=== PATIENT | male | born 1955 | race African-American/Black ===

== ENCOUNTER 2018-05-02 15:05 | Inpatient (IN) | payer MEDICARE ==
[2018-05-03 02:10] VITALS: BMI 25.2
[2018-05-03] MEDS ORDERED: Acetaminophen 325 MG TAB PO SCH (04:30)
[2018-05-03] MEDS ORDERED: Ondansetron PF 4 MG/2 ML Vial IVP PRN (07:57)
[2018-05-03] MEDS ORDERED: Ondansetron ODT 4 MG TAB PO PRN (07:57)
[2018-05-03] MEDS ORDERED: Nitroglycerin 0.4 MG TAB (25 Tab Bottle) PO PRN (07:57)
[2018-05-03] MEDS ORDERED: Calcium Carbonate 500 MG ChewTAB PO PRN (07:57)
[2018-05-03] MEDS ORDERED: hydrALAZINE 20 MG/ML VIAL SLOW IVP PRN (08:04)
[2018-05-03] MEDS ORDERED: Sodium Chloride 0.45% 1,000 ML IV SCH (08:15)
--- NOTE | 2018-05-03 08:24 | HP ---
PRIMARY CARE PHYSICIAN: The patient has seen Dr. Rosario in [place] in the past. He has not seen any primary care physician recently. CHIEF COMPLAINT: Left-sided weakness. HISTORY OF PRESENT ILLNESS: The patient is a 63-year-old male with hypertension, was brought in to [facility] with left-sided weakness along with facial droop that started 5 days ago. The symptoms started suddenly, which caused him to fall. He denies any chest pain, palpitations, lightheadedness, dizziness, or syncope. 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 He states that he takes aspirin daily; however, he is unable to recall any of his home medications. He denies any headaches, change in vision, seizure, weakness, or numbness of his right side. His speech was also slurry along with facial droop. He was unable to seek help since his was out of town for work. The returned yesterday and brought him to the emergency room. In the emergency room, his initial vital signs showed temperature 98.3, respirations of 16, pulse rate of 88, with a blood pressure 209/98 and 176/104. He received 75 mg Plavix in the emergency room. CT scan of the brain was negative. PAST MEDICAL HISTORY: 1. Hypertension. 2. Rheumatoid arthritis. 3. History of CVA. 4. Complete blindness in the right eye with 95% vision loss in the left eye. 5. Noncompliant with medication. PAST SURGICAL HISTORY: Reviewed with the patient and none. ALLERGIES: NO KNOWN DRUG ALLERGIES. CURRENT HOME MEDICATIONS: The patient is unable to recall any of his home medications. He states that he has not taken any blood pressure medications for more than 2 years. SOCIAL HISTORY: The patient smokes up to half pack a day. Currently, lives at home with his spouse. He has history of cannabis abuse in the past. No drug use. He makes his own decision with the help of his spouse. He is full code. FAMILY HISTORY: Negative for premature coronary artery disease. Heart disease and diabetes run in his family. REVIEW OF SYSTEM: All other review of systems was reviewed and found negative. PHYSICAL EXAMINATION: VITAL SIGNS: As discussed above. Last blood pressure is 138/83. GENERAL: A 63-year-old male, in no apparent distress. HEENT: Head atraumatic, normocephalic. Sclerae anicteric. Moist mucous membranes. No oral lesion. NECK: Supple. No JVD. No neck stiffness. LUNGS: Clear to auscultation bilaterally. HEART: S1 and S2 present. Regular rate and rhythm. ABDOMEN: Soft, nontender. Bowel sounds present. EXTREMITIES: No edema or calf tenderness. NEUROLOGIC: There is 5/5 strength in the right upper and right lower extremity. The strength was 2/5 in left upper and left lower extremity. Sensation to touch was diminished on the left side. Gjzrqb-[id number]-kdpt test was normal on the right. Cranial nerves could not be reliably checked due to vision issues. However, he was not able to move his eyeballs to his left past midline. Facial droop was noted. PSYCHIATRIC: The patient is alert, awake, and oriented x3. SKIN: Warm and dry. LYMPH NODES: No palpable lymph nodes in the neck. PERIPHERAL VASCULAR: Radial pulses palpable bilaterally. MUSCULOSKELETAL: No joint swelling. There is some tenderness over the left hip. LABORATORY FINDINGS: WBC 4.9, hemoglobin 12.7, hematocrit 39.1, and platelets 270. PT 14.3, INR 1.1. Chemistry showed sodium 137, potassium 4, chloride 105, bicarb 23, BUN 12, and creatinine 0.91. LFTs in normal range. CK was 426. CT scan of the brain, by my review, was negative for acute CVA. Telemetry monitoring, by my review, showed sinus rhythm. IMPRESSION: 1. Acute cerebrovascular accident involving the right middle cerebral artery distribution. 2. Hypertension with hypertensive urgency on ER arrival. 3. Medication noncompliance. 4. Complete blindness in the right eye/95% vision loss in the left eye. 5. History of rheumatoid arthritis. 6. Glaucoma. 7. Tobacco dependence. 8. Fall five days ago secondary to left-sided weakness. 9. Elevated CK. PLAN: 1. The patient will be monitored in the stroke unit. We will get stroke workup including MRI, echocardiogram, and carotid Doppler. Neurology will be consulted. We will continue Plavix. The patient states that he takes aspirin daily. Further recommendations per Neurology. His blood pressure is 138/83 at this time. He has not received any antihypertensives so far. We will repeat CK in a.m. Gentle IV hydration for elevated CK. 2. The patient will require 2 to 3 days for stabilization. Will probably need longterm versus rehab placement. Job ID: [id number]
[2018-05-03] MEDS ORDERED: Carvedilol 3.125 MG TAB PO SCH (09:00)
[2018-05-03] MEDS: Lisinopril 5 MG TAB PO SCH ×2 (09:39→22:12)
[2018-05-03] MEDS: Clopidogrel Bisulfate 75 MG TAB PO SCH (09:39)
[2018-05-03] MEDS: Senokot S 8.6-50 MG TAB PO SCH ×2 (09:40→22:12)
--- NOTE | 2018-05-03 11:58 | MRI ---
MRI BRAIN NONCONTRAST: Date: 05/03/18 HISTORY: CVA. Recent fall. FINDINGS: Within the posterior limb of the right internal capsule, near the right thalamus, is an oval focus of restricted diffusion measuring 1.0 cm greatest diameter. There is a corresponding defect on the ADC mapping images. Subtle abnormality at this location on the FLAIR and T2-weighted images. No other are as of acute intracranial infarct. Ventricles appear normal in size, shape, and position. No mass effe ct or shift of midline structures. IMPRESSION: Small focal acute infarct at the right basal ganglia and internal capsule. At this location, the lowe r trunk and left lower extremity may be affected. POS: [facility]
[2018-05-03] MEDS: Sodium Chloride 0.45% 1,000 ML IV SCH (12:30)
--- NOTE | 2018-05-03 13:07 | RAD ---
LEFT HIP 2 VIEWS: Date: 05/03/18 HISTORY: Fall. Left hip injury. FINDINGS: There is chronic appearing flattening and deformity of the femoral head and acetabulum with bulky ost eophytosis and subchondral sclerosis. No displaced fractures are apparent. IMPRESSION: Severe degenerative changes of the hip and collapse of the femoral head. No acute fractures are demon strated. POS: [facility]
[2018-05-03] MEDS ORDERED: Carvedilol 6.25 MG TAB PO SCH (17:00)
--- NOTE | 2018-05-03 21:39 | ULT ---
CAROTID ULTRASOUND WITH THOMAS SCALE AND DOPPLER DUPLEX COLOR FLOW IMAGING SPECTRAL ANALYSIS PERFORMED: CLINICAL INDICATION: Acute cerebrovascular accident. FINDINGS: There is mild scattered atherosclerotic calcification of the carotid arteries. PEAK SYSTOLIC VELOCITY (CM/S): Right CCA 136 Left CCA 128 Right ICA 93 Left ICA 91 There is antegrade flow within the visualized bilateral vertebral arteries. IMPRESSION: 1. No hemodynamically significant stenosis of the right internal carotid artery. 2. No hemodynamically significant stenosis of the left internal carotid artery. POS: MEL[facility]A
--- NOTE | 2018-05-04 02:58 | CON ---
DATE OF CONSULTATION: 05/03/2018 NEUROLOGY CONSULTATION REFERRING PHYSICIAN: Renzo Lawson MD. REASON FOR REFERRAL: CVA. HISTORY OF PRESENT ILLNESS: This is a 63-year-old male who about 5 days prior to admission noticed that he had weakness of the left side of the body. He states that it affected his left face, the left arm, and the left leg. He states that he fell a few times due to that and he fell on his left side on his hip that was x-rayed and was not broken. He states that his chronic medical problems include hypertension, glaucoma, and rheumatoid arthritis. He has complete blindness with no light perception in the right eye due to the glaucoma and he can only see shadows in the left eye due to glaucoma. He has had surgery for glaucoma in the left eye in the past. PAST MEDICAL HISTORY: Hypertension, rheumatoid arthritis, and glaucoma. SOCIAL HISTORY: Tobacco, he smokes about half a pack a day. Alcohol, denies. He lives with his . He does not drive due to his blindness. FAMILY HISTORY: Positive for heart disease and diabetes. REVIEW OF SYSTEMS: A 14-point review is done and is negative except for the blindness and the left-sided weakness. The patient states that the left-sided weakness did come on abruptly 5 days ago and has remained about the same as when it started. PHYSICAL EXAMINATION: VITAL SIGNS: Blood pressure 156/90, pulse is 83, temperature 97.7, respiratory rate is 16, and O2 saturation is 98% on room air. HEENT: Negative. There is corneal scarring in the right eye. The patient has no light perception in the right eye and sees only shadows in the left eye. The right pupil is nonvisualized due to the scarring. The left pupil is 5 mm and irregular and it is reactive to light. Other cranial nerves 2 through 12 show that he has no light perception in the right eye and sees only shadows in the left eye. 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 LUNGS: Clear. HEART: Regular. ABDOMEN: Not distended. EXTREMITIES: Some arthritis. SKIN: No bleeding. No rashes. EXTREMITIES: Joints, no swelling. NEUROLOGICAL: Cranial nerves 2 through 12 are as mentioned. Motor 5/5 strength in the right arm and leg. The left arm is 3/5 with diminished fine motor of the left hand and the left leg is 1/5. DTRs are 2+. The right toe is downgoing, the left toe is upgoing. Sensation is diminished to touch on the left side of the body compared to the right. According to the patient, it is about 20-25% of what the right side is. Gait, he is unable to walk both due to his poor vision and his left leg is very impaired at this time due to the stroke. DIAGNOSTIC DATA: Reports show that he had an MRI of the brain that showed as expected, a small focal acute infarct in the right basal ganglia and internal capsule area. It is about 1 cm in greatest diameter. Other labs have been ordered for tomorrow and they are pending. Note that an echocardiogram has been ordered as well as a carotid Doppler. MEDICATIONS: He is on Plavix 75 mg daily. IMPRESSION: Status post cerebrovascular accident in the right internal capsule basal ganglia area. This is most likely on the basis of chronic small vessel disease caused by long-standing hypertension and tobacco use. The patient has significant left-sided weakness and is at a fall risk. PLAN: I agree with giving him an antiplatelet therapy, Plavix, and one aspirin a day and agree with getting the echocardiogram and carotid Doppler. Test results discussed with him. Recommend speech therapy, physical and occupational therapy, and rehab. Fall precautions are in place. Discussed with the patient that he should stop smoking. Job ID: [id number]
[2018-05-04 06:00] LABS: #Basophils 0.1 thou/uL (0.0-0.2); #Lymphocytes 1.3 thou/uL (1.20-3.40); #Monocytes 0.5 thou/uL (0.11-0.59); #Neutrophils 2.1 thou/uL (1.40-6.50); %Basophils 1.3 % (0.0-1.0); %Eosinophils 1.1 % (0.0-10.0); %Lymphocytes 33.5 % (21.0-51.0); %Monocytes 11.4 % (0.0-10.0); %Neutrophils 52.6 % (42.0-75.0); Hemoglobin 11.6 g/dL (14.0-18.0); Mean Corpuscular HGB CONC 32.4 g/dL (32.0-36.0); Mean Corpuscular Hemoglobin 30.7 pg (27.0-31.0); Mean Corpuscular Volume 94.7 fL (78.0-98.0); Mean Platelet Volume 8.1 fL (7.4-10.4); Platelet Count 235 thou/uL (130-400); RBC Distribution Width 13.1 % (11.5-14.5); Red Blood Cell (RBC) Count 3.79 mill/uL (4.70-6.10)
[2018-05-04 06:22] LABS: ALT (SGPT) 13 U/L (8-55); AST (SGOT) 15 U/L (5-34); Albumin 3.7 g/dL (3.4-4.8); Alkaline Phosphatase 98 U/L (40-150); Anion Gap 11 mmol/L (10-20); BUN (Urea Nitrogen) 14 mg/dL (8.4-25.7); Bilirubin, Total 0.7 mg/dL (0.2-1.2); CK (CPK) 227 U/L (30-200); Calc. Creatinine Clearance 96 mL/min (70-130); Calcium 9.2 mg/dL (7.8-10.44); Carbon Dioxide 23 mmol/L (23-31); Cardiac Risk 7.6 (Less than 4.5); Chloride 105 mmol/L (98-107); Cholesterol 212 mg/dl (< 200 Desired); Estimated GFR-MDRD Greater than 90; Globulin 2.5 g/dL (2.4-3.5); Glucose 90 mg/dL (80-115); HDL Cholesterol 28 mg/dL (>60 Neg Risk); LDL Cholesterol, Calculated 161 mg/dL; Potassium 4.4 mmol/L (3.5-5.1); Protein, Total 6.2 g/dL (5.8-8.1); Sodium 135 mmol/L (136-145); Triglycerides 114 mg/dL (Less than 150)
[2018-05-04] MEDS: Sodium Chloride 0.45% 1,000 ML IV SCH (08:05)
[2018-05-04] MEDS: Aspirin 81 mg Enteric Coated Tablet PO SCH (08:07)
[2018-05-04] MEDS: Clopidogrel Bisulfate 75 MG TAB PO SCH (08:07)
[2018-05-04] MEDS: Lisinopril 5 MG TAB PO SCH ×2 (08:07→21:59)
[2018-05-04] MEDS: Carvedilol 3.125 MG TAB PO SCH ×2 (08:08→17:14)
[2018-05-04] MEDS: Senokot S 8.6-50 MG TAB PO SCH ×2 (08:08→21:59)
--- NOTE | 2018-05-04 11:30 | PDOC.PN ---
- Subjective Encounter Start Date: 05/04/18 Encounter Start Time: 10:00 Patient seen and examined for Acute CVA. No new focal deficits. No new complaints. No overnight events - Objective Resuscitation Status - Order Detail: 05/03/18 07:57 Resuscitation Status Routine Resuscitation Status: FULL: Full Resuscitation MAR Reviewed: Yes Vital Signs & Weight: Vital Signs (12 hours) Temp Pulse Resp BP BP Pulse Ox 05/04/18 08:07 60 130/73 05/04/18 07:35 98.5 F 60 16 130/73 93 L 05/04/18 04:00 98.5 F 64 16 108/57 L 97 05/04/18 03:54 96 05/04/18 00:00 98.3 F 75 16 137/81 96 Weight Weight 191 lb 1.6 oz I&O: 05/03/18 05/04/18 05/05/18 06:59 06:59 06:59 Output Total 550 Balance -550 Result Diagrams: 05/04/18 05:37 05/04/18 05:37 EKG Reviewed by me: Yes (Tele SR) Phys Exam - Physical Examination Constitutional: NAD Respiratory: no wheezing, no rhonchi Cardiovascular: RRR, no rub Gastrointestinal: soft, non-tender, positive bowel sounds Musculoskeletal: no edema Neurological: moves all 4 limbs no new neuro deficits. Dx/Plan (1) Acute CVA (cerebrovascular accident) Code(s): I63.9 - CEREBRAL INFARCTION, UNSPECIFIED Status: Acute (2) HTN (hypertension) Code(s): I10 - ESSENTIAL (PRIMARY) HYPERTENSION Status: Acute (3) Tobacco dependence Code(s): F17.200 - NICOTINE DEPENDENCE, UNSPECIFIED, UNCOMPLICATED Status: Chronic Comment: Counselled (4) Rheumatoid arthritis Code(s): M06.9 - RHEUMATOID ARTHRITIS, UNSPECIFIED Status: Chronic (5) Other issues per previous notes - Plan PT/OT, social work job titles, speech therapy, DVT proph w/lovenox, DVT proph w/SCDs * Cont ASA/Plavix * Reduce Coreg and Lisinopril dose * SNF vs Rehab * Cont other meds as below * Add low dose Statins Laboratory Tests 05/04/18 05:37 Creatine Kinase 227 H Triglycerides 114 Cholesterol 212 H LDL Cholesterol, Calc 161 Review of Systems - Review of Systems Respiratory: negative: Cough, Dry, Shortness of Breath, Hemoptysis, SOB with Excertion, Pleuritic Pain, Sputum, Wheezing Cardiovascular: negative: chest pain, palpitations, orthopnea, paroxysmal nocturnal dyspnea, edema, light headedness, other - Medications/Allergies Allergies/Adverse Reactions: Allergies Allergy/AdvReac Type Severity Reaction Status Date / Time No Known Drug Allergies Allergy Verified 05/03/18 02:27 Medications: Current Medications Acetaminophen (Tylenol) 650 mg PO Q4H PRN PRN Reason: Headache/Fever/Mild Pain (1-3) Aspirin (Ecotrin) 81 mg PO DAILY [facility] Last Admin: 05/04/18 08:07 Dose: 81 mg Atorvastatin Calcium (Lipitor) 10 mg PO HS [facility] Calcium Carbonate (Tums) 1,000 mg PO Q4H PRN PRN Reason: Heartburn or Indigestion Carvedilol (Coreg) 3.125 mg PO BID-[facility] Last Admin: 05/04/18 08:08 Dose: 3.125 mg Clopidogrel Bisulfate (Plavix) 75 mg PO QAM [facility] Last Admin: 05/04/18 08:07 Dose: 75 mg Hydralazine HCl (Apresoline) 10 mg SLOW IVP Q4H PRN PRN Reason: SBP Greater Than 180 Sodium Chloride (1/2 Normal Saline) 1,000 mls @ 50 mls/hr IV .Q20H [facility] Last Admin: 05/04/18 08:05 Dose: 1,000 mls Lisinopril (Zestril) 5 mg PO BID [facility] Last Admin: 05/04/18 08:07 Dose: 5 mg Nitroglycerin (Nitrostat) 0.4 mg PO Q5MIN PRN PRN Reason: Chest Pain Ondansetron HCl (Zofran Odt) 4 mg PO Q6H PRN PRN Reason: Nausea/Vomiting Ondansetron HCl (Zofran) 4 mg IVP Q6H PRN PRN Reason: Nausea/Vomiting Senna/Docusate Sodium (Senokot S) 1 tab PO BID [facility] Last Admin: 05/04/18 08:08 Dose: 1 tab Sodium Chloride (Flush - Normal Saline) 10 ml IVF PRN PRN PRN Reason: Saline Flush
[2018-05-04] MEDS: Atorvastatin Calcium 10 MG TAB PO SCH (21:59)
[2018-05-05] MEDS: Lisinopril 5 MG TAB PO SCH ×2 (08:03→21:24)
[2018-05-05] MEDS: Senokot S 8.6-50 MG TAB PO SCH ×2 (08:03→21:24)
[2018-05-05] MEDS: Aspirin 81 mg Enteric Coated Tablet PO SCH (08:04)
[2018-05-05] MEDS: Clopidogrel Bisulfate 75 MG TAB PO SCH (08:04)
[2018-05-05] MEDS: Carvedilol 3.125 MG TAB PO SCH ×2 (08:04→16:09)
[2018-05-05] MEDS: Acetaminophen 325 MG TAB PO PRN (08:11)
--- NOTE | 2018-05-05 12:25 | PQF ---
[employer] Crystal Reports Winform AltagraciaFABIOLAVANESSATAMEKAKRISTA CORDON MD [id number] CLINICAL DOCUMENTATION IMPROVEMENT CLARIFICATION FORM: ICD-10 Updated PLEASE DO AN ADDENDUM TO THE PROGRESS NOTE WITH ANY DOCUMENTATION UPDATES OR ADDITIONS AND CARRY THROUGH TO DC SUMMARY. THANK YOU. DATE: 05/05/2018 ATTN: DR. FOURNIER Please exercise your independent, professional judgment in responding to the clarification form. Clinical indicators are provided on the bottom of this form for your review Please check appropriate box(s): [ ] Left Hemiplegia Specify: [ ] Non dominant side [ ] Dominant side [ ] Other diagnosis [ ] Unable to determine CLINICAL INDICATORS - SIGNS / SYMPTOMS / LABS Presented for left sided weakness and facial droop x 4-5 days ER notes: Complete flaccidity of the left leg and weakness of left arm. H&P notes: 2/5 strength in left upper and lower extremities. Sensation to touch was diminished on left side. Facial droop was noted. RISK FACTORS CVA diagnosis Blindness due to previous stroke TREATMENT: Assisted with ambulation PT/OT Thank you, Nelly (This form is maintained as a part of the permanent medical record) 2015 [employer]. All Rights Reserved Nelly Delgado RN, CDIS [email or web address] [phone] MTDD
[2018-05-05] MEDS: Sodium Chloride 0.45% 1,000 ML IV SCH (16:08)
--- NOTE | 2018-05-05 16:09 | PDOC.PN ---
- Subjective Encounter Start Date: 05/05/18 Encounter Start Time: 10:30 Patient seen and examined for Acute CVA. No new complaints. No overnight events - Objective Resuscitation Status - Order Detail: 05/03/18 07:57 Resuscitation Status Routine Resuscitation Status: FULL: Full Resuscitation MAR Reviewed: Yes Vital Signs & Weight: Vital Signs (12 hours) Temp Pulse Resp BP BP Pulse Ox 05/05/18 11:59 98.3 F 68 16 144/88 H 98 05/05/18 09:45 98 05/05/18 08:03 63 150/90 H 05/05/18 07:47 97.9 F 66 16 150/90 H 98 Weight Weight 191 lb 1.6 oz I&O: 05/04/18 05/05/18 05/06/18 06:59 06:59 06:59 Intake Total 360 340 Output Total 550 Balance -550 360 340 Result Diagrams: 05/04/18 05:37 05/04/18 05:37 EKG Reviewed by me: Yes (Tele SR) Phys Exam - Physical Examination Constitutional: NAD Respiratory: no wheezing, no rhonchi Cardiovascular: RRR, no rub Gastrointestinal: soft, non-tender, positive bowel sounds Musculoskeletal: no edema Neurological: moves all 4 limbs Dx/Plan (1) Acute CVA (cerebrovascular accident) Code(s): I63.9 - CEREBRAL INFARCTION, UNSPECIFIED Status: Acute Comment: causing left hemiplegia (non dominant side) (2) HTN (hypertension) Code(s): I10 - ESSENTIAL (PRIMARY) HYPERTENSION Status: Acute (3) Tobacco dependence Code(s): F17.200 - NICOTINE DEPENDENCE, UNSPECIFIED, UNCOMPLICATED Status: Chronic Comment: Counselled (4) Rheumatoid arthritis Code(s): M06.9 - RHEUMATOID ARTHRITIS, UNSPECIFIED Status: Chronic (5) Other issues per previous notes - Plan cont current plan of care, PT/OT, social work coordinator, DVT proph w/lovenox, DVT proph w/SCDs Cont ASA -: Cont Coreg/Lisinopril/Statins -: Await Rehab eval -: Cont other meds as below Review of Systems - Review of Systems Respiratory: negative: Cough, Dry, Shortness of Breath, Hemoptysis, SOB with Excertion, Pleuritic Pain, Sputum, Wheezing Cardiovascular: negative: chest pain, palpitations, orthopnea, paroxysmal nocturnal dyspnea, edema, light headedness, other - Medications/Allergies Allergies/Adverse Reactions: Allergies Allergy/AdvReac Type Severity Reaction Status Date / Time No Known Drug Allergies Allergy Verified 05/03/18 02:27 Medications: Current Medications Acetaminophen (Tylenol) 650 mg PO Q4H PRN PRN Reason: Headache/Fever/Mild Pain (1-3) Last Admin: 05/05/18 08:11 Dose: 650 mg Aspirin (Ecotrin) 81 mg PO DAILY [facility] Last Admin: 05/05/18 08:04 Dose: 81 mg Atorvastatin Calcium (Lipitor) 10 mg PO HS [facility] Last Admin: 05/04/18 21:59 Dose: 10 mg Calcium Carbonate (Tums) 1,000 mg PO Q4H PRN PRN Reason: Heartburn or Indigestion Carvedilol (Coreg) 3.125 mg PO BID-[facility] Last Admin: 05/05/18 08:04 Dose: 3.125 mg [facility]opidogrel [facility] ([facility]ix) [facility] [place] Admin: 05/05/18 08:04 Dose: 75 mg Hydralazine HCl (Apresoline) 10 mg SLOW IVP Q4H PRN PRN Reason: SBP Greater Than 180 Sodium Chloride (1/2 Normal Saline) 1,000 mls @ 50 mls/hr IV .Q20H [facility] Last Admin: 05/04/18 08:05 Dose: 1,000 mls Lisinopril (Zestril) 5 mg PO BID [facility] Last Admin: 05/05/18 08:03 Dose: 5 mg Nitroglycerin (Nitrostat) 0.4 mg PO Q5MIN PRN PRN Reason: Chest Pain Ondansetron HCl (Zofran Odt) 4 mg PO Q6H PRN PRN Reason: Nausea/Vomiting Ondansetron HCl (Zofran) 4 mg IVP Q6H PRN PRN Reason: Nausea/Vomiting Senna/Docusate Sodium (Senokot S) 1 tab PO BID [facility] Last Admin: 05/05/18 08:03 Dose: 1 tab Sodium Chloride (Flush - Normal Saline) 10 ml IVF PRN PRN PRN Reason: Saline Flush
[2018-05-05] MEDS: Atorvastatin Calcium 10 MG TAB PO SCH (21:49)
[2018-05-06] MEDS: Aspirin 81 mg Enteric Coated Tablet PO SCH (10:12)
[2018-05-06] MEDS: Clopidogrel Bisulfate 75 MG TAB PO SCH (10:12)
[2018-05-06] MEDS: Carvedilol 3.125 MG TAB PO SCH ×2 (10:12→21:58)
[2018-05-06] MEDS: Lisinopril 5 MG TAB PO SCH ×2 (10:12→21:57)
[2018-05-06] MEDS: Senokot S 8.6-50 MG TAB PO SCH ×2 (10:13→21:56)
[2018-05-06] MEDS: Acetaminophen 325 MG TAB PO PRN ×2 (10:16→21:57)
--- NOTE | 2018-05-06 21:19 | PDOC.PN ---
- Subjective Encounter Start Date: 05/06/18 Encounter Start Time: 14:00 Patient seen and examined for acute CVA. No new focal deficits. No new complaints. No overnight events - Objective Resuscitation Status - Order Detail: 05/03/18 07:57 Resuscitation Status Routine Resuscitation Status: FULL: Full Resuscitation MAR Reviewed: Yes Vital Signs & Weight: Vital Signs (12 hours) Temp Pulse Resp BP Pulse Ox 05/06/18 15:12 98.2 F 66 20 145/77 H 98 05/06/18 11:19 98.1 F 69 20 143/73 H 97 05/06/18 10:12 63 Weight Weight 191 lb 1.6 oz I&O: 05/05/18 05/06/18 05/07/18 06:59 06:59 06:59 Intake Total 360 1040 1200 Output Total 1300 450 Balance 360 -260 750 Result Diagrams: 05/04/18 05:37 05/04/18 05:37 EKG Reviewed by me: Yes (Tele SR) Phys Exam - Physical Examination Constitutional: NAD Respiratory: no wheezing, no rhonchi Cardiovascular: RRR, no rub Gastrointestinal: soft, non-tender, positive bowel sounds Neurological: moves all 4 limbs no new focal findings Dx/Plan (1) Acute CVA (cerebrovascular accident) Code(s): I63.9 - CEREBRAL INFARCTION, UNSPECIFIED Status: Acute Comment: causing left hemiplegia (non dominant side) (2) HTN (hypertension) Code(s): I10 - ESSENTIAL (PRIMARY) HYPERTENSION Status: Acute (3) Tobacco dependence Code(s): F17.200 - NICOTINE DEPENDENCE, UNSPECIFIED, UNCOMPLICATED Status: Chronic Comment: Counselled (4) Rheumatoid arthritis Code(s): M06.9 - RHEUMATOID ARTHRITIS, UNSPECIFIED Status: Chronic (5) Other issues per previous notes - Plan cont current plan of care, PT/OT, DVT proph w/lovenox, DVT proph w/SCDs Cont ASA/Plavix/Statins with low dose Coreg and Lisinopril -: Stable for dc -: No bed available at Rehab today Review of Systems - Medications/Allergies Allergies/Adverse Reactions: Allergies Allergy/AdvReac Type Severity Reaction Status Date / Time No Known Drug Allergies Allergy Verified 05/03/18 02:27 Medications: Current Medications Acetaminophen (Tylenol) 650 mg PO Q4H PRN PRN Reason: Headache/Fever/Mild Pain (1-3) Last Admin: 05/06/18 10:16 Dose: 650 mg Aspirin (Ecotrin) 81 mg PO DAILY [facility] Last Admin: 05/06/18 10:12 Dose: 81 mg Atorvastatin Calcium (Lipitor) 10 mg PO HS [facility] Last Admin: 05/05/18 21:49 Dose: 10 mg Calcium Carbonate (Tums) 1,000 mg PO Q4H PRN PRN Reason: Heartburn or Indigestion Carvedilol (Coreg) 3.125 mg PO BID-[facility] Clopidogrel [facility] ([facility]avix) [facility] Last Admin: 05/06/18 10:12 Dose: 75 mg Hydralazine HCl (Apresoline) 10 mg SLOW IVP Q4H PRN PRN Reason: SBP Greater Than 180 Lisinopril (Zestril) 5 mg PO BID [facility] Last Admin: 05/06/18 10:12 Dose: 5 mg Nitroglycerin (Nitrostat) 0.4 mg PO Q5MIN PRN PRN Reason: Chest Pain Ondansetron HCl (Zofran Odt) 4 mg PO Q6H PRN PRN Reason: Nausea/Vomiting Ondansetron HCl (Zofran) 4 mg IVP Q6H PRN PRN Reason: Nausea/Vomiting Senna/Docusate Sodium (Senokot S) 1 tab PO BID [facility] Last Admin: 05/06/18 10:13 Dose: 1 tab Sodium Chloride (Flush - Normal Saline) 10 ml IVF PRN PRN PRN Reason: Saline Flush
[2018-05-06] MEDS: Atorvastatin Calcium 10 MG TAB PO SCH (21:56)
[2018-05-07] MEDS ORDERED: Carvedilol 6.25 MG TAB PO SCH (08:00)
[2018-05-07] MEDS: Senokot S 8.6-50 MG TAB PO SCH ×2 (09:18→20:47)
[2018-05-07] MEDS: Clopidogrel Bisulfate 75 MG TAB PO SCH (09:19)
[2018-05-07] MEDS: Lisinopril 5 MG TAB PO SCH ×2 (09:19→20:46)
[2018-05-07] MEDS: Aspirin 81 mg Enteric Coated Tablet PO SCH (09:19)
[2018-05-07] MEDS: Acetaminophen 325 MG TAB PO PRN (09:23)
[2018-05-07] MEDS: Carvedilol 6.25 MG TAB PO SCH (17:29)
[2018-05-07 18:32] LABS: #Basophils 0.1 thou/uL (0.0-0.2); #Eosinphils 0.1 thou/uL (0.0-0.7); #Lymphocytes 1.7 thou/uL (1.20-3.40); #Monocytes 0.3 thou/uL (0.11-0.59); %Eosinophils 1.4 % (0.0-10.0); %Lymphocytes 40.8 % (21.0-51.0); %Monocytes 8.2 % (0.0-10.0); %Neutrophils 47.7 % (42.0-75.0); Mean Corpuscular HGB CONC 32.7 g/dL (32.0-36.0); Mean Corpuscular Hemoglobin 31.1 pg (27.0-31.0); Mean Corpuscular Volume 95.1 fL (78.0-98.0); Mean Platelet Volume 7.5 fL (7.4-10.4); Platelet Count 213 thou/uL (130-400); Red Blood Cell (RBC) Count 3.85 mill/uL (4.70-6.10); White Blood Cell (WBC) Count 4.1 thou/uL (4.8-10.8)
[2018-05-07 18:55] LABS: Anion Gap 12 mmol/L (10-20); BUN (Urea Nitrogen) 11 mg/dL (8.4-25.7); Calc. Creatinine Clearance 109 mL/min (70-130); Calcium 9.4 mg/dL (7.8-10.44); Carbon Dioxide 24 mmol/L (23-31); Chloride 104 mmol/L (98-107); Estimated GFR-MDRD Greater than 90; Glucose 89 mg/dL (80-115); Magnesium 2.4 mg/dL (1.6-2.6); Potassium 4.1 mmol/L (3.5-5.1); Sodium 136 mmol/L (136-145)
[2018-05-07] MEDS: Atorvastatin Calcium 40 MG TAB PO SCH (20:46)
--- NOTE | 2018-05-07 22:16 | PDOC.PN ---
- Subjective Encounter Start Date: 05/07/18 Encounter Start Time: 12:00 Patient seen and examined for Acute CVA. No CP/SOB/Palpitations. No new complaints. No overnight events - Objective Resuscitation Status - Order Detail: 05/03/18 07:57 Resuscitation Status Routine Resuscitation Status: FULL: Full Resuscitation MAR Reviewed: Yes Vital Signs & Weight: Vital Signs (12 hours) Temp Pulse Pulse Pulse Resp BP BP 05/07/18 20:46 63 142/75 H 05/07/18 20:00 97.8 F 65 18 05/07/18 16:20 65 16 05/07/18 15:50 98 F 66 16 05/07/18 11:50 97.8 F 59 L 16 05/07/18 10:33 62 63 144/79 H BP BP Pulse Ox Pulse Ox 05/07/18 20:46 05/07/18 20:00 142/75 H 100 05/07/18 16:20 174/99 H 05/07/18 15:50 181/100 H 98 05/07/18 11:50 141/82 H 99 05/07/18 10:33 140/80 98 Weight Weight 191 lb 1.6 oz I&O: 05/06/18 05/07/18 05/08/18 06:59 06:59 06:59 Intake Total 1040 1700 1320 Output Total 1300 960 Balance -786 475 9304 Result Diagrams: 05/07/18 18:24 05/07/18 18:24 EKG Reviewed by me: Yes (Tele SR, NSVT earlier) Phys Exam - Physical Examination Constitutional: NAD Respiratory: no wheezing, no rhonchi Cardiovascular: RRR, no rub Gastrointestinal: soft, non-tender, positive bowel sounds Musculoskeletal: no edema Neurological: moves all 4 limbs (no new focal findings) Dx/Plan (1) Acute CVA (cerebrovascular accident) Code(s): I63.9 - CEREBRAL INFARCTION, UNSPECIFIED Status: Acute Comment: causing left hemiplegia (non dominant side) (2) NSVT (nonsustained ventricular tachycardia) Code(s): I47.2 - VENTRICULAR TACHYCARDIA Status: Acute (3) HTN (hypertension) Code(s): I10 - ESSENTIAL (PRIMARY) HYPERTENSION Status: Acute (4) Tobacco dependence Code(s): F17.200 - NICOTINE DEPENDENCE, UNSPECIFIED, UNCOMPLICATED Status: Chronic Comment: Counselled (5) Rheumatoid arthritis Code(s): M06.9 - RHEUMATOID ARTHRITIS, UNSPECIFIED Status: Chronic (6) Other issues per previous notes - Plan DVT proph w/lovenox, DVT proph w/SCDs Consult Cardiology -: Cont Coreg -: Cont ASA/Plavix -: Cont Statins -: Cont other meds as below Review of Systems - Review of Systems Respiratory: negative: Cough, Dry, Shortness of Breath, Hemoptysis, SOB with Excertion, Pleuritic Pain, Sputum, Wheezing Cardiovascular: negative: chest pain, palpitations, orthopnea, paroxysmal nocturnal dyspnea, edema, light headedness, other Gastrointestinal: negative: Nausea, Vomiting, Abdominal Pain, Diarrhea, Constipation, Melena, Hematochezia, Other - Medications/Allergies Allergies/Adverse Reactions: Allergies Allergy/AdvReac Type Severity Reaction Status Date / Time No Known Drug Allergies Allergy Verified 05/03/18 02:27 Medications: Current Medications Acetaminophen (Tylenol) 650 mg PO Q4H PRN PRN Reason: Headache/Fever/Mild Pain (1-3) Last Admin: 05/07/18 09:23 Dose: 650 mg Aspirin (Ecotrin) 81 mg PO DAILY [facility] Last Admin: 05/07/18 09:19 Dose: 81 mg Atorvastatin Calcium (Lipitor) 40 mg PO HS [facility] Last Admin: 05/07/18 20:46 Dose: 40 mg Calcium Carbonate (Tums) 1,000 mg PO Q4H PRN PRN Reason: Heartburn or Indigestion Carvedilol (Coreg) 6.25 mg PO BID[facility] Last Admin: 05/07/18 17:29 Dose: 6.25 mg [facility] ([facility]) [facility] [place] Admin: 05/07/18 09:19 Dose: 75 mg Hydralazine HCl (Apresoline) 10 mg SLOW IVP Q4H PRN PRN Reason: SBP Greater Than 180 Lisinopril (Zestril) 5 mg PO BID [facility] Last Admin: 05/07/18 20:46 Dose: 5 mg Nitroglycerin (Nitrostat) 0.4 mg PO Q5MIN PRN PRN Reason: Chest Pain Ondansetron HCl (Zofran Odt) 4 mg PO Q6H PRN PRN Reason: Nausea/Vomiting Ondansetron HCl (Zofran) 4 mg IVP Q6H PRN PRN Reason: Nausea/Vomiting Senna/Docusate Sodium (Senokot S) 2 tab PO BID [facility] Last Admin: 05/07/18 20:47 Dose: 2 tab Sodium Chloride (Flush - Normal Saline) 10 ml IVF PRN PRN PRN Reason: Saline Flush
[2018-05-08] MEDS: Lisinopril 5 MG TAB PO SCH ×2 (10:20→21:23)
[2018-05-08] MEDS: Carvedilol 6.25 MG TAB PO SCH ×2 (10:20→16:26)
[2018-05-08] MEDS: Senokot S 8.6-50 MG TAB PO SCH ×2 (11:22→21:23)
[2018-05-08] MEDS: Clopidogrel Bisulfate 75 MG TAB PO SCH (11:22)
[2018-05-08] MEDS: Aspirin 81 mg Enteric Coated Tablet PO SCH (11:22)
--- NOTE | 2018-05-08 12:45 | NM ---
MYOCARDIAL PERFUSION SCAN: 05/08/2018 PROVIDED CLINICAL HISTORY: Chest pain. RADIOPHARMACEUTICAL: Technetium 99m labeled sestamibi 31.1 millicuries IV stress. Technetium 99m labeled sestamibi 10.7 millicuries IV rest. FINDINGS: There is a normal, homogeneous distribution of radiotracer throughout the left ventricular myocardial at both stress and rest. Gated data demonstrate global hypokinesis with a calculated LVEF of 36%. TID is 1.11. IMPRESSION: 1. No reversibility to suggest ischemia. 2. Global hypokinesis with diminished left ventricular ejection fraction. POS: ROBERT
--- NOTE | 2018-05-08 14:50 | CON ---
DATE OF CONSULTATION: HISTORY OF PRESENT ILLNESS: The patient is a pleasant 63-year-old gentleman, who presented with a cerebrovascular accident and was noted to have a short run of nonsustained ventricular tach on telemetry monitoring. The patient has no known cardiac history. The patient presented with acute onset of left-sided weakness and loss of vision. The patient has a history of hypertension and tobacco abuse. The patient also has a history of noncompliance. The patient denies having any chest discomfort. He also denies any palpitations or dyspnea. The patient presented with acute cerebrovascular accident. PAST MEDICAL HISTORY: 1. Hypertension. 2. History of CVA. 3. Rheumatoid arthritis. 4. Glaucoma. PAST SURGICAL HISTORY: None. ALLERGIES: NONE. MEDICATIONS: None. SOCIAL HISTORY: Long history of tobacco abuse. FAMILY HISTORY: No strong family history of coronary artery disease. REVIEW OF SYSTEMS: Ten-point system otherwise unremarkable. PHYSICAL EXAMINATION: GENERAL: This is an elderly gentleman, in no acute distress. VITAL SIGNS: Blood pressure was 181/100. NECK: Showed no jugular venous distention. LUNGS: Clear to auscultation. HEART: Regular rate and rhythm. Normal S1 and S2. No murmurs. ABDOMEN: Nondistended. EXTREMITIES: Show no edema. VASCULAR: Radial pulses are 2+. LABORATORY DATA: Sodium 135, potassium 4.4, chloride 105, bicarb 23, BUN 14, creatinine is 0.94, and glucose is 90. Cholesterol was 212, his LDL was 161. His white blood cell count is 4.0, hemoglobin 11.6, hematocrit 35.9, and his platelets are 235. His EKG reveals him to have normal sinus rhythm with a normal ECG. Telemetry monitoring revealed a 5-beat run of nonsustained ventricular tachycardia. Echocardiogram revealed normal left ventricular ejection fraction of 50% to 55%. IMPRESSION: 1. Nonsustained ventricular tachycardia. 2. Cerebrovascular accident. 3. Hypertension. 4. Tobacco abuse. 5. Noncompliance. PLAN: This gentleman suffered a cerebrovascular accident. From a cardiac standpoint, he is on Plavix and aspirin. We would recommend increasing the dose of his Lipitor. We would restart low-dose beta-maria antonia therapy. We will proceed with stress test to make sure there is not evidence of acute ischemia with his recent cerebrovascular accident. We will try to treat medically unless there is severe ischemia. We would increase the dose of the patient's Lipitor. We will follow this patient with you. Please call my office. Job ID: [id number]
[2018-05-08] MEDS ORDERED: ADENOSINE 60 MG/20 ML VIAL ONE (15:38)
[2018-05-08] MEDS: Acetaminophen 325 MG TAB PO PRN (16:26)
[2018-05-08] MEDS ORDERED: Melatonin 3 MG TAB PO SCH ×2 (21:00)
[2018-05-08] MEDS: Atorvastatin Calcium 40 MG TAB PO SCH (21:27)
--- NOTE | 2018-05-08 22:52 | PDOC.PN ---
- Subjective Encounter Start Date: 05/08/18 Encounter Start Time: 14:00 Patient seen and examined for CVA and NSVT. No new complaints. No overnight events - Objective Resuscitation Status - Order Detail: 05/03/18 07:57 Resuscitation Status Routine Resuscitation Status: FULL: Full Resuscitation MAR Reviewed: Yes Vital Signs & Weight: Vital Signs (12 hours) Temp Pulse Resp BP BP Pulse Ox 05/08/18 21:23 81 148/96 H 05/08/18 20:00 97.9 F 81 19 148/96 H 99 05/08/18 16:26 142/75 H 05/08/18 15:36 97.9 F 56 L 16 138/81 99 05/08/18 11:58 97.8 F 71 16 179/102 H 99 Weight Weight 191 lb 1.6 oz I&O: 05/07/18 05/08/18 05/09/18 06:59 06:59 06:59 Intake Total 1700 1420 240 Output Total 960 250 Balance 740 1170 240 Result Diagrams: 05/07/18 18:24 05/07/18 18:24 EKG Reviewed by me: Yes (Tele SR) Phys Exam - Physical Examination Constitutional: NAD Respiratory: no wheezing, no rhonchi Cardiovascular: RRR, no rub Gastrointestinal: soft, non-tender, positive bowel sounds Musculoskeletal: no edema Neurological: moves all 4 limbs no new focal deficits. Dx/Plan (1) Acute CVA (cerebrovascular accident) Code(s): I63.9 - CEREBRAL INFARCTION, UNSPECIFIED Status: Acute Comment: causing left hemiplegia (non dominant side) (2) NSVT (nonsustained ventricular tachycardia) Code(s): I47.2 - VENTRICULAR TACHYCARDIA Status: Acute (3) HTN (hypertension) Code(s): I10 - ESSENTIAL (PRIMARY) HYPERTENSION Status: Acute (4) Tobacco dependence Code(s): F17.200 - NICOTINE DEPENDENCE, UNSPECIFIED, UNCOMPLICATED Status: Chronic Comment: Counselled (5) Rheumatoid arthritis Code(s): M06.9 - RHEUMATOID ARTHRITIS, UNSPECIFIED Status: Chronic (6) Other issues per previous notes - Plan cont current plan of care, PT/OT, speech therapy, DVT proph w/SCDs Coreg dose increased -: Stable for dc to Rehab -: Cont ASA/Plavix Review of Systems - Review of Systems Respiratory: negative: Cough, Dry, Shortness of Breath, Hemoptysis, SOB with Excertion, Pleuritic Pain, Sputum, Wheezing Cardiovascular: negative: chest pain, palpitations, orthopnea, paroxysmal nocturnal dyspnea, edema, light headedness, other - Medications/Allergies Allergies/Adverse Reactions: Allergies Allergy/AdvReac Type Severity Reaction Status Date / Time No Known Drug Allergies Allergy Verified 05/03/18 02:27 Medications: Current Medications Acetaminophen (Tylenol) 650 mg PO Q4H PRN PRN Reason: Headache/Fever/Mild Pain (1-3) Last Admin: 05/08/18 16:26 Dose: 650 mg Aspirin (Ecotrin) 81 mg PO DAILY [facility] Last Admin: 05/08/18 11:22 Dose: 81 mg Atorvastatin Calcium (Lipitor) 40 mg PO [facility] Last Admin: 05/08/18 21:27 Dose: 40 mg Calcium Carbonate (Tums) 1,000 mg PO Q4H PRN PRN Reason: Heartburn or Indigestion Carvedilol (Coreg) 12.5 mg PO BID-[facility] Last Admin: 05/08/18 16:26 Dose: 12.5 mg Clopidogrel Bis[facility]ate (Plavix) [facility] [place] Last Admin: 05/08/18 11:22 Dose: 75 mg Hydralazine HCl (Apresoline) 10 mg SLOW IVP Q4H PRN PRN Reason: SBP Greater Than 180 Lisinopril (Zestril) 5 mg PO BID [facility] Last Admin: 05/08/18 21:23 Dose: 5 mg Melatonin (Melatonin) 6 mg PO [facility] Last Admin: 05/08/18 21:23 Dose: 6 mg Nitroglycerin (Nitrostat) 0.4 mg PO Q5MIN PRN PRN Reason: Chest Pain Ondansetron HCl (Zofran Odt) 4 mg PO Q6H PRN PRN Reason: Nausea/Vomiting Ondansetron HCl (Zofran) 4 mg IVP Q6H PRN PRN Reason: Nausea/Vomiting Senna/Docusate Sodium (Senokot S) 2 tab PO BID [facility] Last Admin: 05/08/18 21:23 Dose: 2 tab Sodium Chloride (Flush - Normal Saline) 10 ml IVF PRN PRN PRN Reason: Saline Flush
[2018-05-09] MEDS: Clopidogrel Bisulfate 75 MG TAB PO SCH (09:28)
[2018-05-09] MEDS: Carvedilol 6.25 MG TAB PO SCH (09:28)
[2018-05-09] MEDS: Aspirin 81 mg Enteric Coated Tablet PO SCH (09:28)
[2018-05-09] MEDS: Lisinopril 5 MG TAB PO SCH (09:29)
[2018-05-09] MEDS: Senokot S 8.6-50 MG TAB PO SCH (09:30)
[2018-05-09 11:44] VITALS: BP 131/72; TEMP 98
--- NOTE | 2018-05-09 14:10 | DIS ---
DATE OF ADMISSION: 05/02/2018 DATE OF DISCHARGE: 05/09/2018 DISCHARGE DISPOSITION: Inpatient rehabilitation. The patient was seen and examined on the day of discharge. Denies any new complaints. No chest pain, shortness of breath, or palpitations. ALLERGIES: NO KNOWN DRUG ALLERGIES. DISCHARGE MEDICATIONS: 1. Aspirin 81 mg daily. 2. Plavix 75 mg daily. 3. Lisinopril 5 mg b.i.d. 4. Carvedilol 12.5 mg b.i.d. 5. Lipitor 40 mg at bedtime. INPATIENT CONSULTANTS: 1. Cardiology, Dr. Tutu Pace. 2. Neurology, Dr. Doherty. DIAGNOSTIC TESTS: 1. Echocardiogram showed ejection fraction of 50% to 55% with mild mitral regurgitation. 2. MRI of the brain showed acute infarction in the right basal ganglia and internal capsule. 3. Carotid Doppler was negative for hemodynamically significant stenosis. 4. X-ray of the hip was negative for acute fractures or dislocation. It showed severe degenerative changes. 5. Cardiolite stress test yesterday was negative for reversible ischemia. Ejection fraction on the stress test was 36% with TID 1.11. BRIEF HOSPITAL COURSE: The patient is a 63-year-old male with hypertension, presented to the emergency room with left-sided weakness. Please refer to the history and physical dated May 02, 2018, for further details. The patient was admitted to the hospital with a diagnosis of acute CVA. He underwent stroke workup as discussed above. Echocardiogram showed normal left ventricular ejection fraction. He also had short run of nonsustained ventricular tachycardia, for which he was evaluated by Cardiology. Beta maria antonia dose has been increased. Please note, the patient is currently not on any medications at home. He was evaluated by Cardiology and Neurology. Aspirin and Plavix have been started. He has been cleared by consultants for discharge. FINAL DIAGNOSES: 1. Acute CVA causing left-sided hemiplegia. 2. Nonsustained ventricular tachycardia. No new episode after increasing beta blockers. 3. Hypertension. 4. Tobacco dependence. The patient was counseled. 5. Rheumatoid arthritis. 6. 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 7. Medication noncompliance. 8. Hypertensive urgency on ER arrival. 9. History of rheumatoid arthritis. 10. Glaucoma. 11. History of fall 5 days prior to ER presentation. 12. Elevated CK, improved. Total time coordinating the discharge of this patient was 37 minutes. Job ID: [id number]
--- NOTE | 2018-05-11 13:09 | STRESS ---
Acquisition Time: 2018-05-08 10:05:58 Total Exercise Time: 00:04:00 Test Indications: CHEST PAIN Medications: Protocol: ADENOSINE Max HR: 085 BPM 54% of Pred: 155 BPM Max BP: 202/106 mmHG Max Work Load: 1.0 METS RESTING ECG: SINUS BRADYCARDIA AT 58 BPM SYMPTOMS: DYSPNEA NORMAL BP RESPONSE ECTOPY: NONE ECG STRESS: NO SIGNIFICANT CHANGES INTERPRETATION: AWAIT NUCLEAR IMAGES FOR DEFINITIVE DIAGNOSIS Confirmed by MIGUEL CACERES ([id number]), online content editor JENNIFER OLIVAREZ ([id number]) on 05/11/2018 1:08:40 PM Referred By: MD Vonnie ROLLINS Confirmed By:MIGUEL CACERES
== END 2018-05-09 13:32 | DRG 65 ==
LOC: ERS 15:05 → 2SE 17:35
PROVIDERS: ADMIT Family Medicine; ATTEND Family Medicine
DX: I63.89 Other cerebral infarction (principal); G81.94 Hemiplegia, unspecified affecting left nondominant side; I47.2 Ventricular tachycardia; R29.713 NIHSS score 13; I10 Essential (primary) hypertension; I16.0 Hypertensive urgency; M06.9 Rheumatoid arthritis, unspecified; R74.8 Abnormal levels of other serum enzymes; H40.9 Unspecified glaucoma; H54.3 Unqualified visual loss, both eyes; Z91.14 Patient's other noncompliance with medication regimen; F17.210 Nicotine dependence, cigarettes, uncomplicated
CPT/HCPCS: 36415; 70551; 78452; 80048; 80053; 80061; 82550; 83735; 85025; 93017; 93306; 93880; 94760; 99285; A9500; J0153

== ENCOUNTER 2020-04-17 10:35 | Outpatient (CLI) | payer MEDICARE ==
--- NOTE | 2020-04-17 12:56 | CT ---
EXAM: CT chest without contrast PROVIDED CLINICAL HISTORY: Personal history of nicotine dependence, low dose screening COMPARISON: None FINDINGS: The heart, pericardium and great vessels are suboptimally evaluated in the absence of IV contrast mat erial. Vascular calcification including coronary calcium is demonstrated. There is no evidence for thoracic lymph node enlargement with limitations due to lack of IV contrast. There is a noncalcified 4 mm average axial dimension nodule at the left lung apex. The lungs appear o therwise clear. The airway appears patent and of normal caliber. There is no pleural fluid or pneumothorax apparent. The visualized portions of the upper abdomen demonstrate no significant abnormality. The osseous structures demonstrate no concerning lytic or blastic lesions. IMPRESSION: 1. Lung RADS category 2-benign findings. Continue annual screening. 2. Vascular calcification including coronary calcium.
== END 2020-04-17 10:36 | disposition home or self-care (01) ==
LOC: BICCT 10:35
PROVIDERS: ATTEND Nurse Practitioner Adult Health
DX: Z12.2 Encounter for screening for malignant neoplasm of respiratory organs (principal); Z87.891 Personal history of nicotine dependence; I25.10 Atherosclerotic heart disease of native coronary artery without angina pectoris
CPT/HCPCS: G0297

== ENCOUNTER 2022-01-03 10:50 | Outpatient (CLI) | payer MEDICARE | END 2022-01-03 10:51 | disposition home or self-care (01) | LOC: PET 10:50 | PROVIDERS: ATTEND Surgery | DX: C50.221 Malignant neoplasm of upper-inner quadrant of right male breast (principal); C77.3 Secondary and unspecified malignant neoplasm of axilla and upper limb lymph nodes | CPT/HCPCS: 78815; A9552 ==

== ENCOUNTER 2022-01-23 11:02 | Outpatient (CLI) | payer MEDICARE | END 2022-01-23 11:03 | disposition home or self-care (01) | LOC: SCSMRI 11:02 | PROVIDERS: ATTEND Internal Medicine Hematology & Oncology | DX: C50.121 Malignant neoplasm of central portion of right male breast (principal); M16.11 Unilateral primary osteoarthritis, right hip; M16.12 Unilateral primary osteoarthritis, left hip; M87.852 Other osteonecrosis, left femur; M87.851 Other osteonecrosis, right femur; N40.0 Benign prostatic hyperplasia without lower urinary tract symptoms ==

== ENCOUNTER 2022-03-29 10:56 | Inpatient (IN) | payer MEDICARE ==
[2022-03-29 11:35] LABS: #Lymphocytes 0.9 thou/uL (1.20-3.40); #Monocytes 0.5 thou/uL (0.11-0.59); #Neutrophils 9.6 thou/uL (1.40-6.50); %Basophils 0.3 % (0.0-1.0); %Lymphocytes 7.9 % (21.0-51.0); %Monocytes 4.2 % (0.0-10.0); %Neutrophils 87.5 % (42.0-75.0); Hemoglobin 7.5 g/dL (14.0-18.0); Mean Corpuscular Hemoglobin 32.6 pg (27.0-31.0); Mean Corpuscular Volume 98.8 fl (78.0-98.0); Mean Platelet Volume 7.3 fL (7.4-10.4); Platelet Count 256 10x3/uL (130-400); RBC Distribution Width 13.9 % (11.5-14.5)
[2022-03-29] MEDS ORDERED: Cefepime 2 GM VIAL ONE (11:36)
[2022-03-29 11:44] LABS: Bilirubin Negative (Negative); Blood, Urine Negative (Negative); Clarity Clear (Clear); Glucose, Urine (Dipstick) Normal (Negative); Ketone, Urine Negative (Negative); Leukocyte Negative Leu/uL (Negative); Nitrite Negative (Negative); Protein, Urine (Dipstick) Negative (Neg-Trace); Specific Gravity, Urine 1.017 (1.002-1.036); Urobilinogen Normal mg/dL (Less than 2)
[2022-03-29 12:01] LABS: ALT (SGPT) 25 U/L (8-55); AST (SGOT) 16 U/L (5-34); Albumin 3.2 g/dL (3.4-4.8); Alkaline Phosphatase 171 U/L (40-110); Anion Gap 14 mmol/L (10-20); BUN (Urea Nitrogen) 103 mg/dL (8.4-25.7); Bilirubin, Total 0.4 mg/dL (0.2-1.2); Calc. Creatinine Clearance 0 mL/min (70-130); Calcium 8.6 mg/dL (7.8-10.44); Carbon Dioxide 17 mmol/L (23-31); Chloride 104 mmol/L (98-107); Estimated GFR 13; Glucose 145 mg/dL (80-115); Lipase 95 U/L (8-78); Potassium 5.5 mmol/L (3.5-5.1); Protein, Total 5.2 g/dL (5.8-8.1); Sodium 129 mmol/L (136-145)
[2022-03-29] MEDS ORDERED: NOREPINEPHRINE 8 MG/250 ML-D5W 250 ML ONE (12:34)
[2022-03-29] MEDS ORDERED: VANCOMYCIN 2 GRAM/500 ML BAG 2 GM in Premix Bag 1 BAG IVPB SCH ×2 (12:45→14:45)
[2022-03-29] MEDS ORDERED: Bisacodyl 10 MG SUPP PR PRN (12:47)
[2022-03-29] MEDS ORDERED: Guaifenesin DM 100-10/5 ML UDCUP PO PRN (12:47)
[2022-03-29] MEDS ORDERED: Vancomycin HCl 1 GM in Sodium Chloride 0.9% 250 ML 300 ML IVPB SCH (12:47)
[2022-03-29] MEDS ORDERED: Dextrose 5% in Water 1,000 ML IV SCH (12:47)
[2022-03-29] MEDS ORDERED: NOREPINEPHRINE 8 MG/250 ML-D5W 250 ML IVPB SCH (12:47)
[2022-03-29] MEDS ORDERED: Senokot S 8.6-50 MG TAB PO PRN (12:47)
[2022-03-29] MEDS ORDERED: Hydrocortisone Sod Succ/PF 100 mg/2 ml Vial IVP SCH (13:45)
[2022-03-29] MEDS ORDERED: Hydrocortisone Sod Succ/PF 100 mg/2 ml Vial ONE (13:59)
[2022-03-29 15:59] LABS: Anion Gap 15 mmol/L (10-20); BUN (Urea Nitrogen) 84 mg/dL (8.4-25.7); Calc. Creatinine Clearance 0 mL/min (70-130); Calcium 7.7 mg/dL (7.8-10.44); Carbon Dioxide 12 mmol/L (23-31); Chloride 110 mmol/L (98-107); Estimated GFR 18; Glucose 96 mg/dL (80-115); Potassium 5.6 mmol/L (3.5-5.1); Sodium 131 mmol/L (136-145)
[2022-03-29] MEDS ORDERED: Sodium Bicarbonate 150 MEQ in Dextrose 5% in Water 1,000 ML IV SCH (16:15)
[2022-03-29 17:25] LABS: #Lymphocytes 0.5 thou/uL (1.20-3.40); #Monocytes 0.6 thou/uL (0.11-0.59); #Neutrophils 15.5 thou/uL (1.40-6.50); %Basophils 0.2 % (0.0-1.0); %Lymphocytes 2.8 % (21.0-51.0); %Monocytes 3.5 % (0.0-10.0); %Neutrophils 93.5 % (42.0-75.0); Mean Corpuscular HGB CONC 32.6 g/dL (32.0-36.0); Mean Corpuscular Hemoglobin 32.4 pg (27.0-31.0); Mean Corpuscular Volume 99.3 fl (78.0-98.0); Mean Platelet Volume 7.6 fL (7.4-10.4); Platelet Count 231 10x3/uL (130-400); Red Blood Cell (RBC) Count 2.15 mill/uL (4.70-6.10); White Blood Cell (WBC) Count 16.6 10x3/uL (4.8-10.8)
[2022-03-29 17:33] VITALS: BMI 23.3
[2022-03-29] MEDS: Acetaminophen 325 MG TAB PO PRN (17:52)
[2022-03-29] MEDS: Hydrocortisone Sod Succ/PF 100 mg/2 ml Vial IVP SCH ×2 (17:53→23:00)
[2022-03-29] MEDS: Atorvastatin Calcium 40 MG TAB PO SCH (20:07)
[2022-03-29] MEDS: Pantoprazole 40 MG VIAL IVP SCH (20:07)
[2022-03-29] MEDS: Melatonin 3 MG TAB PO PRN (23:25)
[2022-03-30 04:18] LABS: #Lymphocytes 0.4 thou/uL (1.20-3.40); #Monocytes 0.4 thou/uL (0.11-0.59); #Neutrophils 16.3 thou/uL (1.40-6.50); %Eosinophils 0.1 % (0.0-10.0); %Lymphocytes 2.6 % (21.0-51.0); %Monocytes 2.2 % (0.0-10.0); %Neutrophils 95.1 % (42.0-75.0); Hemoglobin 7.8 g/dL (14.0-18.0); Mean Corpuscular HGB CONC 32.7 g/dL (32.0-36.0); Mean Corpuscular Hemoglobin 31.6 pg (27.0-31.0); Mean Corpuscular Volume 96.6 fl (78.0-98.0); Mean Platelet Volume 7.5 fL (7.4-10.4); Platelet Count 231 10x3/uL (130-400); RBC Distribution Width 14.6 % (11.5-14.5); Red Blood Cell (RBC) Count 2.47 mill/uL (4.70-6.10); White Blood Cell (WBC) Count 17.1 10x3/uL (4.8-10.8)
[2022-03-30 04:39] LABS: Phosphorus 3.6 mg/dL (2.3-4.7)
[2022-03-30 04:42] LABS: ALT (SGPT) 21 U/L (8-55); AST (SGOT) 16 U/L (5-34); Albumin 2.9 g/dL (3.4-4.8); Alkaline Phosphatase 172 U/L (40-110); Anion Gap 12 mmol/L (10-20); BUN (Urea Nitrogen) 54 mg/dL (8.4-25.7); BUN/Creatinine Ratio 27.98; Bilirubin, Total 0.6 mg/dL (0.2-1.2); Calc. Creatinine Clearance 42 mL/min (70-130); Calcium 8.2 mg/dL (7.8-10.44); Carbon Dioxide 20 mmol/L (23-31); Chloride 105 mmol/L (98-107); Estimated GFR 37; Globulin 2.3 g/dL (2.4-3.5); Glucose 142 mg/dL (80-115); Magnesium 2.3 mg/dL (1.6-2.6); Phosphorus 3.7 mg/dL (2.3-4.7); Protein, Total 5.2 g/dL (5.8-8.1); Sodium 132 mmol/L (136-145)
[2022-03-30] MEDS: Hydrocortisone Sod Succ/PF 100 mg/2 ml Vial IVP SCH ×2 (05:02→11:41)
[2022-03-30 05:16] LABS: Lactic Acid 0.7 mmol/L (0.5-2.2)
[2022-03-30] MEDS ORDERED: Sodium Bicarbonate 150 MEQ in Dextrose 5% in Water 1,000 ML IV SCH (08:45)
[2022-03-30] MEDS ORDERED: FLU VACC QS2022-23(65YR UP)/PF 240 MCG/0.7 ML SYRINGE IM ONE (09:00)
[2022-03-30] MEDS: Acetaminophen 325 MG TAB PO PRN ×2 (09:04→21:18)
[2022-03-30] MEDS: Clopidogrel Bisulfate 75 MG TAB PO SCH (09:05)
[2022-03-30] MEDS: Aspirin 81 mg Enteric Coated Tablet PO SCH (09:06)
[2022-03-30] MEDS: Enoxaparin Sodium 30 MG/0.3 ML SYRINGE SC SCH (09:17)
[2022-03-30] MEDS: Pantoprazole 40 MG VIAL IVP SCH ×2 (09:18→21:20)
[2022-03-30] MEDS: Cefepime 2 GM in Sodium Chloride 0.9% 100 ML IVPB SCH (11:41)
[2022-03-30 14:19] LABS: Vancomycin, Random 9.2 ug/mL (See Comment)
[2022-03-30] MEDS ORDERED: Vancomycin Dose by Levels Sliding Scale (Wt 71-99) FS SCH (15:00)
[2022-03-30] MEDS: VANCOMYCIN 1.25 GM/250 ML BAG 1.25 GM in Premix Bag 1 BAG IVPB SCH (17:35)
[2022-03-30] MEDS: Melatonin 3 MG TAB PO PRN (21:18)
[2022-03-30] MEDS: Atorvastatin Calcium 40 MG TAB PO SCH (21:20)
[2022-03-31 06:17] LABS: Lactic Acid 1.5 mmol/L (0.5-2.2)
[2022-03-31 06:33] LABS: ALT (SGPT) 27 U/L (8-55); AST (SGOT) 19 U/L (5-34); Albumin 2.6 g/dL (3.4-4.8); Alkaline Phosphatase 139 U/L (40-110); Anion Gap 9 mmol/L (10-20); BUN (Urea Nitrogen) 37 mg/dL (8.4-25.7); Bilirubin, Total 0.3 mg/dL (0.2-1.2); Calc. Creatinine Clearance 66 mL/min (70-130); Calcium 7.8 mg/dL (7.8-10.44); Carbon Dioxide 26 mmol/L (23-31); Chloride 101 mmol/L (98-107); Estimated GFR 63; Globulin 1.9 g/dL (2.4-3.5); Glucose 84 mg/dL (80-115); Magnesium 1.9 mg/dL (1.6-2.6); Phosphorus 1.8 mg/dL (2.3-4.7); Potassium 4.2 mmol/L (3.5-5.1); Protein, Total 4.5 g/dL (5.8-8.1); Sodium 132 mmol/L (136-145)
[2022-03-31] MEDS: Aspirin 81 mg Enteric Coated Tablet PO SCH (09:38)
[2022-03-31] MEDS: Enoxaparin Sodium 30 MG/0.3 ML SYRINGE SC SCH (09:38)
[2022-03-31] MEDS: Pantoprazole 40 MG VIAL IVP SCH ×2 (09:38→20:20)
[2022-03-31] MEDS: Clopidogrel Bisulfate 75 MG TAB PO SCH (09:38)
[2022-03-31 09:54] LABS: #Basophils 0.1 thou/uL (0.0-0.2); #Lymphocytes 1.2 thou/uL (1.20-3.40); #Monocytes 0.8 thou/uL (0.11-0.59); #Neutrophils 9.9 thou/uL (1.40-6.50); %Basophils 0.7 % (0.0-1.0); %Lymphocytes 10.3 % (21.0-51.0); %Monocytes 6.7 % (0.0-10.0); %Neutrophils 82.2 % (42.0-75.0); Hemoglobin 7.1 g/dL (14.0-18.0); Mean Corpuscular Hemoglobin 32.9 pg (27.0-31.0); Mean Corpuscular Volume 96.8 fl (78.0-98.0); Mean Platelet Volume 7.2 fL (7.4-10.4); Platelet Count 200 10x3/uL (130-400); RBC Distribution Width 14.5 % (11.5-14.5); Red Blood Cell (RBC) Count 2.15 mill/uL (4.70-6.10)
[2022-03-31 10:29] LABS: Free Thyroxine Index 1.7 (1.4-3.1); T4 6.5 ug/dL (4.87-11.72); Thyroid Stimulating Hormone 1.9631 uIU/mL (0.35-4.94)
[2022-03-31] MEDS ORDERED: Potassium Phosphate 30 MMOL in Sodium Chloride 0.9% 250 ML 250 ML IVPB SCH (11:00)
[2022-03-31] MEDS: Cefepime 2 GM in Sodium Chloride 0.9% 100 ML IVPB SCH (12:44)
[2022-03-31] MEDS: VANCOMYCIN 1.25 GM/250 ML BAG 1.25 GM in Premix Bag 1 BAG IVPB SCH (16:12)
[2022-03-31] MEDS: Ondansetron PF 4 MG/2 ML Vial IVP PRN (17:04)
[2022-03-31] MEDS: Atorvastatin Calcium 40 MG TAB PO SCH (20:20)
[2022-03-31 20:44] LABS: #Basophils 0.1 thou/uL (0.0-0.2); #Lymphocytes 1.2 thou/uL (1.20-3.40); #Monocytes 0.7 thou/uL (0.11-0.59); #Neutrophils 9.2 thou/uL (1.40-6.50); %Basophils 0.8 % (0.0-1.0); %Lymphocytes 10.4 % (21.0-51.0); %Monocytes 6.4 % (0.0-10.0); %Neutrophils 82.4 % (42.0-75.0); Hemoglobin 7.5 g/dL (14.0-18.0); Mean Corpuscular HGB CONC 33.4 g/dL (32.0-36.0); Mean Corpuscular Hemoglobin 32.2 pg (27.0-31.0); Mean Corpuscular Volume 96.3 fl (78.0-98.0); Mean Platelet Volume 6.8 fL (7.4-10.4); Platelet Count 184 10x3/uL (130-400); RBC Distribution Width 14.1 % (11.5-14.5); Red Blood Cell (RBC) Count 2.32 mill/uL (4.70-6.10); White Blood Cell (WBC) Count 11.2 10x3/uL (4.8-10.8)
[2022-04-01 06:27] LABS: Lactic Acid 0.6 mmol/L (0.5-2.2)
[2022-04-01 06:31] LABS: ALT (SGPT) 25 U/L (8-55); AST (SGOT) 21 U/L (5-34); Albumin 2.4 g/dL (3.4-4.8); Alkaline Phosphatase 132 U/L (40-110); Anion Gap 7 mmol/L (10-20); BUN (Urea Nitrogen) 18 mg/dL (8.4-25.7); Bilirubin, Total 0.5 mg/dL (0.2-1.2); Calc. Creatinine Clearance 86 mL/min (70-130); Calcium 7.8 mg/dL (7.8-10.44); Carbon Dioxide 29 mmol/L (23-31); Chloride 103 mmol/L (98-107); Estimated GFR 87; Globulin 1.9 g/dL (2.4-3.5); Glucose 79 mg/dL (80-115); Magnesium 1.7 mg/dL (1.6-2.6); Potassium 4.7 mmol/L (3.5-5.1); Protein, Total 4.3 g/dL (5.8-8.1); Sodium 134 mmol/L (136-145)
[2022-04-01] MEDS: Clopidogrel Bisulfate 75 MG TAB PO SCH (08:10)
[2022-04-01] MEDS: Aspirin 81 mg Enteric Coated Tablet PO SCH (08:10)
[2022-04-01] MEDS: Pantoprazole 40 MG VIAL IVP SCH ×2 (08:10→19:25)
[2022-04-01] MEDS: Cefepime 2 GM in Sodium Chloride 0.9% 100 ML IVPB SCH (11:07)
[2022-04-01 15:11] LABS: Vancomycin, Trough 8.7 ug/mL
[2022-04-01] MEDS: VANCOMYCIN 1.25 GM/250 ML BAG 1.25 GM in Premix Bag 1 BAG IVPB SCH (15:34)
[2022-04-01] MEDS: Acetaminophen 325 MG TAB PO PRN (15:41)
[2022-04-01] MEDS: Vancomycin HCl 750 MG in Sodium Chloride 0.9% 250 ML 250 ML IVPB SCH (15:41)
[2022-04-01] MEDS: Atorvastatin Calcium 40 MG TAB PO SCH (19:24)
[2022-04-01] MEDS: Ondansetron PF 4 MG/2 ML Vial IVP PRN (19:24)
[2022-04-01] MEDS: Lorazepam 0.5 MG TAB PO PRN (22:11)
[2022-04-02] MEDS: Vancomycin HCl 750 MG in Sodium Chloride 0.9% 250 ML 250 ML IVPB SCH ×2 (04:42→18:49)
[2022-04-02 05:22] LABS: #Lymphocytes 0.8 thou/uL (1.20-3.40); #Monocytes 0.6 thou/uL (0.11-0.59); %Basophils 0.3 % (0.0-1.0); %Eosinophils 0.4 % (0.0-10.0); %Lymphocytes 8.8 % (21.0-51.0); %Monocytes 6.2 % (0.0-10.0); %Neutrophils 84.4 % (42.0-75.0); Hemoglobin 7.1 g/dL (14.0-18.0); Mean Corpuscular HGB CONC 32.6 g/dL (32.0-36.0); Mean Corpuscular Hemoglobin 31.8 pg (27.0-31.0); Mean Corpuscular Volume 97.8 fl (78.0-98.0); Mean Platelet Volume 6.9 fL (7.4-10.4); Platelet Count 196 10x3/uL (130-400); RBC Distribution Width 14.2 % (11.5-14.5); Red Blood Cell (RBC) Count 2.22 mill/uL (4.70-6.10); White Blood Cell (WBC) Count 9.5 10x3/uL (4.8-10.8)
[2022-04-02 05:33] LABS: ALT (SGPT) 32 U/L (8-55); AST (SGOT) 23 U/L (5-34); Albumin 2.5 g/dL (3.4-4.8); Alkaline Phosphatase 143 U/L (40-110); Anion Gap 8 mmol/L (10-20); BUN (Urea Nitrogen) 13 mg/dL (8.4-25.7); Bilirubin, Total 0.4 mg/dL (0.2-1.2); Calc. Creatinine Clearance 89 mL/min (70-130); Calcium 7.8 mg/dL (7.8-10.44); Carbon Dioxide 27 mmol/L (23-31); Chloride 104 mmol/L (98-107); Estimated GFR 91; Globulin 1.9 g/dL (2.4-3.5); Glucose 85 mg/dL (80-115); Magnesium 1.6 mg/dL (1.6-2.6); Potassium 4.3 mmol/L (3.5-5.1); Protein, Total 4.4 g/dL (5.8-8.1); Sodium 135 mmol/L (136-145)
[2022-04-02 05:38] LABS: Lactic Acid 0.7 mmol/L (0.5-2.2)
[2022-04-02] MEDS: Pantoprazole 40 MG VIAL IVP SCH ×2 (09:26→21:26)
[2022-04-02] MEDS: Acetaminophen 325 MG TAB PO PRN (09:33)
[2022-04-02] MEDS: Cefepime 2 GM in Sodium Chloride 0.9% 100 ML IVPB SCH (12:18)
[2022-04-02] MEDS: Atorvastatin Calcium 40 MG TAB PO SCH (21:26)
[2022-04-02] MEDS: Docusate 100 MG CAP PO SCH (21:26)
[2022-04-02] MEDS: Lorazepam 0.5 MG TAB PO PRN (21:35)
[2022-04-02] MEDS: Hyoscyamine Sulfate SL 0.125 mg Tablet SL SCH (23:53)
[2022-04-03 04:33] LABS: Vancomycin, Trough 11.9 ug/mL
[2022-04-03] MEDS: Hyoscyamine Sulfate SL 0.125 mg Tablet SL SCH ×4 (05:20→23:11)
[2022-04-03] MEDS: Vancomycin HCl 750 MG in Sodium Chloride 0.9% 250 ML 250 ML IVPB SCH (05:20)
[2022-04-03 06:01] LABS: #Basophils 0.1 thou/uL (0.0-0.2); #Eosinphils 0.1 thou/uL (0.0-0.7); #Lymphocytes 0.9 thou/uL (1.20-3.40); #Monocytes 0.7 thou/uL (0.11-0.59); #Neutrophils 9.1 thou/uL (1.40-6.50); %Basophils 0.5 % (0.0-1.0); %Lymphocytes 7.9 % (21.0-51.0); %Monocytes 6.2 % (0.0-10.0); %Neutrophils 84.4 % (42.0-75.0); Hemoglobin 5.3 g/dL (14.0-18.0); Mean Corpuscular HGB CONC 32.8 g/dL (32.0-36.0); Mean Corpuscular Hemoglobin 32.1 pg (27.0-31.0); Mean Corpuscular Volume 97.9 fl (78.0-98.0); Mean Platelet Volume 6.6 fL (7.4-10.4); Platelet Count 251 10x3/uL (130-400); Red Blood Cell (RBC) Count 1.65 mill/uL (4.70-6.10); White Blood Cell (WBC) Count 10.8 10x3/uL (4.8-10.8)
[2022-04-03 06:13] LABS: Anion Gap 9 mmol/L (10-20); BUN (Urea Nitrogen) 8 mg/dL (8.4-25.7); Calc. Creatinine Clearance 97 mL/min (70-130); Calcium 7.9 mg/dL (7.8-10.44); Carbon Dioxide 25 mmol/L (23-31); Chloride 104 mmol/L (98-107); Estimated GFR 94; Glucose 92 mg/dL (80-115); Sodium 134 mmol/L (136-145)
[2022-04-03 06:24] LABS: INR-International Normal Ratio 1.1; PTT 32.3 sec (22.9-36.1); Prothrombin Time 14.6 sec (12.0-14.7)
[2022-04-03] MEDS: Docusate 100 MG CAP PO SCH ×2 (09:17→20:05)
[2022-04-03] MEDS: Cefepime 2 GM in Sodium Chloride 0.9% 100 ML IVPB SCH ×2 (09:17→20:05)
[2022-04-03] MEDS: Pantoprazole 40 MG VIAL IVP SCH ×2 (09:17→20:05)
[2022-04-03] MEDS: Acetaminophen 325 MG TAB PO PRN (10:09)
[2022-04-03] MEDS: Vancomycin 1 GM in Premix Bag 1 BAG IVPB SCH (16:10)
[2022-04-03] MEDS: HYDROcodone/Acetaminophen 7.5/325 mg Tablet PO PRN (16:35)
[2022-04-03] MEDS ORDERED: Oxybutynin ER 5 MG TAB PO SCH (17:00)
[2022-04-03 17:27] LABS: #Eosinphils 0.1 thou/uL (0.0-0.7); #Lymphocytes 0.6 thou/uL (1.20-3.40); #Monocytes 0.4 thou/uL (0.11-0.59); #Neutrophils 7.9 thou/uL (1.40-6.50); %Eosinophils 1.5 % (0.0-10.0); %Lymphocytes 6.4 % (21.0-51.0); %Neutrophils 88.1 % (42.0-75.0); Hemoglobin 8.7 g/dL (14.0-18.0); Mean Corpuscular HGB CONC 32.8 g/dL (32.0-36.0); Mean Corpuscular Hemoglobin 31.6 pg (27.0-31.0); Mean Corpuscular Volume 96.4 fl (78.0-98.0); Mean Platelet Volume 6.7 fL (7.4-10.4); Platelet Count 237 10x3/uL (130-400); RBC Distribution Width 14.5 % (11.5-14.5); Red Blood Cell (RBC) Count 2.75 mill/uL (4.70-6.10)
[2022-04-03] MEDS: Atorvastatin Calcium 40 MG TAB PO SCH (20:05)
[2022-04-03] MEDS: Lorazepam 0.5 MG TAB PO PRN (22:38)
[2022-04-04] MEDS: Vancomycin 1 GM in Premix Bag 1 BAG IVPB SCH (03:33)
[2022-04-04] MEDS: Hyoscyamine Sulfate SL 0.125 mg Tablet SL SCH ×3 (05:40→17:19)
[2022-04-04 05:56] LABS: #Eosinphils 0.2 thou/uL (0.0-0.7); #Lymphocytes 0.6 thou/uL (1.20-3.40); #Monocytes 0.3 thou/uL (0.11-0.59); #Neutrophils 7.5 thou/uL (1.40-6.50); %Basophils 0.1 % (0.0-1.0); %Lymphocytes 6.5 % (21.0-51.0); %Monocytes 3.9 % (0.0-10.0); %Neutrophils 87.6 % (42.0-75.0); Hemoglobin 9.1 g/dL (14.0-18.0); Mean Corpuscular HGB CONC 33.2 g/dL (32.0-36.0); Mean Corpuscular Hemoglobin 32.4 pg (27.0-31.0); Mean Corpuscular Volume 97.4 fl (78.0-98.0); Mean Platelet Volume 6.9 fL (7.4-10.4); Platelet Count 244 10x3/uL (130-400); RBC Distribution Width 14.3 % (11.5-14.5); White Blood Cell (WBC) Count 8.6 10x3/uL (4.8-10.8)
[2022-04-04 06:15] LABS: Anion Gap 7 mmol/L (10-20); BUN (Urea Nitrogen) 7 mg/dL (8.4-25.7); Calc. Creatinine Clearance 98 mL/min (70-130); Calcium 7.7 mg/dL (7.8-10.44); Carbon Dioxide 25 mmol/L (23-31); Chloride 104 mmol/L (98-107); Estimated GFR 95; Glucose 92 mg/dL (80-115); Sodium 132 mmol/L (136-145)
[2022-04-04] MEDS: HYDROcodone/Acetaminophen 7.5/325 mg Tablet PO PRN (08:37)
[2022-04-04] MEDS: Pantoprazole 40 MG VIAL IVP SCH ×2 (08:37→20:43)
[2022-04-04] MEDS: Cefepime 2 GM in Sodium Chloride 0.9% 100 ML IVPB SCH ×2 (08:37→20:44)
[2022-04-04] MEDS: Oxybutynin ER 5 MG TAB PO SCH (08:39)
[2022-04-04] MEDS: Docusate 100 MG CAP PO SCH ×2 (08:59→20:44)
[2022-04-04 15:29] LABS: Vancomycin, Trough 14.5 ug/mL
[2022-04-04] MEDS: VANCOMYCIN 1.25 GM/250 ML BAG 1.25 GM in Premix Bag 1 BAG IVPB SCH (15:54)
[2022-04-04] MEDS: Ondansetron PF 4 MG/2 ML Vial IVP PRN (18:27)
[2022-04-04] MEDS: Tamsulosin HCl 0.4 MG CAP PO SCH (20:43)
[2022-04-04] MEDS: Atorvastatin Calcium 40 MG TAB PO SCH (20:43)
[2022-04-04] MEDS: Lorazepam 0.5 MG TAB PO PRN (20:49)
[2022-04-05] MEDS: Hyoscyamine Sulfate SL 0.125 mg Tablet SL SCH ×4 (01:04→17:51)
[2022-04-05 03:18] LABS: #Eosinphils 0.2 thou/uL (0.0-0.7); #Lymphocytes 0.6 thou/uL (1.20-3.40); #Monocytes 0.4 thou/uL (0.11-0.59); #Neutrophils 9.4 thou/uL (1.40-6.50); %Basophils 0.3 % (0.0-1.0); %Eosinophils 2.3 % (0.0-10.0); %Lymphocytes 5.2 % (21.0-51.0); %Monocytes 4.1 % (0.0-10.0); %Neutrophils 88.1 % (42.0-75.0); Hemoglobin 9.8 g/dL (14.0-18.0); Mean Corpuscular HGB CONC 35.8 g/dL (32.0-36.0); Mean Corpuscular Hemoglobin 34.7 pg (27.0-31.0); Mean Corpuscular Volume 96.7 fl (78.0-98.0); Mean Platelet Volume 6.5 fL (7.4-10.4); Platelet Count 250 10x3/uL (130-400); RBC Distribution Width 14.3 % (11.5-14.5); Red Blood Cell (RBC) Count 2.83 mill/uL (4.70-6.10); White Blood Cell (WBC) Count 10.7 10x3/uL (4.8-10.8)
[2022-04-05 03:47] LABS: Vancomycin, Trough 15.4 ug/mL
[2022-04-05 03:53] LABS: Anion Gap 10 mmol/L (10-20); BUN (Urea Nitrogen) 11 mg/dL (8.4-25.7); Calc. Creatinine Clearance 92 mL/min (70-130); Calcium 7.7 mg/dL (7.8-10.44); Carbon Dioxide 22 mmol/L (23-31); Chloride 105 mmol/L (98-107); Estimated GFR 93; Glucose 90 mg/dL (80-115); Potassium 4.2 mmol/L (3.5-5.1); Sodium 133 mmol/L (136-145)
[2022-04-05] MEDS: VANCOMYCIN 1.25 GM/250 ML BAG 1.25 GM in Premix Bag 1 BAG IVPB SCH ×2 (05:11→16:21)
[2022-04-05] MEDS: Cefepime 2 GM in Sodium Chloride 0.9% 100 ML IVPB SCH ×2 (09:09→20:41)
[2022-04-05] MEDS: Docusate 100 MG CAP PO SCH ×2 (09:09→20:43)
[2022-04-05] MEDS: Pantoprazole 40 MG VIAL IVP SCH ×2 (09:09→20:41)
[2022-04-05] MEDS: Ondansetron PF 4 MG/2 ML Vial IVP PRN (09:09)
[2022-04-05] MEDS: Oxybutynin ER 5 MG TAB PO SCH (09:10)
[2022-04-05] MEDS: Atorvastatin Calcium 40 MG TAB PO SCH (20:41)
[2022-04-05] MEDS: Tamsulosin HCl 0.4 MG CAP PO SCH (20:41)
[2022-04-05] MEDS: Melatonin 3 MG TAB PO PRN (22:26)
[2022-04-05] MEDS: Lorazepam 0.5 MG TAB PO PRN (22:26)
[2022-04-06] MEDS: Hyoscyamine Sulfate SL 0.125 mg Tablet SL SCH ×5 (00:05→23:35)
[2022-04-06] MEDS: VANCOMYCIN 1.25 GM/250 ML BAG 1.25 GM in Premix Bag 1 BAG IVPB SCH ×2 (04:52→16:14)
[2022-04-06] MEDS: Docusate 100 MG CAP PO SCH ×2 (09:39→20:09)
[2022-04-06] MEDS: Oxybutynin ER 5 MG TAB PO SCH (09:39)
[2022-04-06] MEDS: Pantoprazole 40 MG VIAL IVP SCH ×2 (09:39→20:08)
[2022-04-06] MEDS: Cefepime 2 GM in Sodium Chloride 0.9% 100 ML IVPB SCH ×2 (09:39→20:08)
[2022-04-06] MEDS: Tamsulosin HCl 0.4 MG CAP PO SCH (20:09)
[2022-04-06] MEDS: Atorvastatin Calcium 40 MG TAB PO SCH (20:09)
[2022-04-06] MEDS: Lorazepam 0.5 MG TAB PO PRN (23:38)
[2022-04-07 01:02] LABS: Bilirubin Negative (Negative); Blood, Urine 2+ (Negative); CAUTI Indications for Culture Fever or rigors; Clarity Extra Turbid (Clear); Glucose, Urine (Dipstick) 300 mg/dL (Negative); Ketone, Urine Trace mg/dL (Negative); Leukocyte 250 Leu/uL (Negative); Nitrite Negative (Negative); Protein, Urine (Dipstick) 100 mg/dL (Neg-Trace); Specific Gravity, Urine 1.025 (1.002-1.036); Squamous Epithelial 0-3 HPF (0-3); Urobilinogen Normal mg/dL (Less than 2); WBC/HPF 21-50 HPF (0-3); pH, Urine 5.5 (5.0-9.0)
[2022-04-07 01:03] LABS: Bacteria/HPF 4+ HPF (None Seen)
[2022-04-07 01:06] LABS: Urine Culture Reflex Yes Yes
[2022-04-07] MEDS: VANCOMYCIN 1.25 GM/250 ML BAG 1.25 GM in Premix Bag 1 BAG IVPB SCH (03:37)
[2022-04-07 04:20] LABS: Anion Gap 11 mmol/L (10-20); BUN (Urea Nitrogen) 20 mg/dL (8.4-25.7); Calc. Creatinine Clearance 87 mL/min (70-130); Calcium 7.3 mg/dL (7.8-10.44); Carbon Dioxide 20 mmol/L (23-31); Chloride 103 mmol/L (98-107); Estimated GFR 88; Glucose 81 mg/dL (80-115); Sodium 130 mmol/L (136-145)
[2022-04-07 04:23] LABS: #Eosinphils 0.2 thou/uL (0.0-0.7); #Lymphocytes 0.9 thou/uL (1.20-3.40); #Monocytes 0.8 thou/uL (0.11-0.59); #Neutrophils 8.9 thou/uL (1.40-6.50); %Basophils 0.2 % (0.0-1.0); %Eosinophils 1.9 % (0.0-10.0); %Lymphocytes 8.3 % (21.0-51.0); %Monocytes 6.9 % (0.0-10.0); %Neutrophils 82.7 % (42.0-75.0); Mean Corpuscular HGB CONC 31.5 g/dL (32.0-36.0); Mean Corpuscular Hemoglobin 31.1 pg (27.0-31.0); Mean Corpuscular Volume 98.7 fl (78.0-98.0); Mean Platelet Volume 6.9 fL (7.4-10.4); Platelet Count 192 10x3/uL (130-400); Red Blood Cell (RBC) Count 2.57 mill/uL (4.70-6.10); White Blood Cell (WBC) Count 10.8 10x3/uL (4.8-10.8)
[2022-04-07] MEDS: Hyoscyamine Sulfate SL 0.125 mg Tablet SL SCH ×3 (06:00→19:07)
[2022-04-07] MEDS: Cefepime 2 GM in Sodium Chloride 0.9% 100 ML IVPB SCH (08:47)
[2022-04-07] MEDS: Docusate 100 MG CAP PO SCH ×2 (08:47→20:26)
[2022-04-07] MEDS: Pantoprazole 40 MG VIAL IVP SCH ×2 (08:47→20:26)
[2022-04-07] MEDS: Oxybutynin ER 5 MG TAB PO SCH (08:47)
[2022-04-07] MEDS ORDERED: Meropenem 1 GM in Sodium Chloride 0.9% 100 ML IVPB SCH ×2 (08:56→09:00)
[2022-04-07] MEDS: Sodium Chloride 0.9% 1,000 ML IV SCH (14:21)
[2022-04-07] MEDS: Meropenem 1 GM in Sodium Chloride 0.9% 100 ML IVPB SCH (17:29)
[2022-04-07] MEDS: Tamsulosin HCl 0.4 MG CAP PO SCH (20:26)
[2022-04-07] MEDS: Atorvastatin Calcium 40 MG TAB PO SCH (20:26)
[2022-04-07] MEDS: Lorazepam 0.5 MG TAB PO PRN (21:03)
[2022-04-08] MEDS: Sodium Chloride 0.9% 1,000 ML IV SCH ×2 (00:03→09:10)
[2022-04-08] MEDS: Hyoscyamine Sulfate SL 0.125 mg Tablet SL SCH ×4 (00:30→18:34)
[2022-04-08] MEDS: Meropenem 1 GM in Sodium Chloride 0.9% 100 ML IVPB SCH ×3 (00:55→18:35)
[2022-04-08 05:57] LABS: #Eosinphils 0.2 thou/uL (0.0-0.7); #Lymphocytes 0.9 thou/uL (1.20-3.40); #Monocytes 0.8 thou/uL (0.11-0.59); #Neutrophils 6.1 thou/uL (1.40-6.50); %Basophils 0.5 % (0.0-1.0); %Eosinophils 2.4 % (0.0-10.0); %Lymphocytes 10.8 % (21.0-51.0); %Monocytes 9.7 % (0.0-10.0); %Neutrophils 76.6 % (42.0-75.0); Hemoglobin 7.3 g/dL (14.0-18.0); Mean Corpuscular HGB CONC 32.1 g/dL (32.0-36.0); Mean Corpuscular Hemoglobin 31.7 pg (27.0-31.0); Mean Platelet Volume 6.2 fL (7.4-10.4); Platelet Count 310 10x3/uL (130-400); RBC Distribution Width 14.1 % (11.5-14.5)
[2022-04-08 06:30] LABS: Anion Gap 7 mmol/L (10-20); BUN (Urea Nitrogen) 18 mg/dL (8.4-25.7); Calc. Creatinine Clearance 102 mL/min (70-130); Calcium 7.5 mg/dL (7.8-10.44); Carbon Dioxide 23 mmol/L (23-31); Chloride 106 mmol/L (98-107); Estimated GFR 96; Glucose 80 mg/dL (80-115); Potassium 3.5 mmol/L (3.5-5.1); Sodium 132 mmol/L (136-145)
[2022-04-08] MEDS: Pantoprazole 40 MG VIAL IVP SCH (08:58)
[2022-04-08] MEDS: Docusate 100 MG CAP PO SCH ×2 (08:59→20:08)
[2022-04-08] MEDS: Oxybutynin ER 5 MG TAB PO SCH (08:59)
[2022-04-08] MEDS ORDERED: Fludrocortisone Acetate 0.1 MG TAB PO SCH (13:45)
[2022-04-08] MEDS: Atorvastatin Calcium 40 MG TAB PO SCH (20:08)
[2022-04-08] MEDS: Tamsulosin HCl 0.4 MG CAP PO SCH (20:08)
[2022-04-08] MEDS: Lorazepam 0.5 MG TAB PO PRN (20:08)
[2022-04-09] MEDS: HYDROcodone/Acetaminophen 5/325 mg Tablet PO PRN ×2 (00:02→21:58)
[2022-04-09] MEDS: Hyoscyamine Sulfate SL 0.125 mg Tablet SL SCH ×4 (00:07→18:51)
[2022-04-09] MEDS: Meropenem 1 GM in Sodium Chloride 0.9% 100 ML IVPB SCH ×3 (00:53→16:13)
[2022-04-09 05:50] LABS: #Basophils 0.1 thou/uL (0.0-0.2); #Eosinphils 0.2 thou/uL (0.0-0.7); #Monocytes 0.5 thou/uL (0.11-0.59); #Neutrophils 4.6 thou/uL (1.40-6.50); %Basophils 1.2 % (0.0-1.0); %Eosinophils 2.9 % (0.0-10.0); %Lymphocytes 16.1 % (21.0-51.0); %Monocytes 7.8 % (0.0-10.0); %Neutrophils 72.1 % (42.0-75.0); Hemoglobin 7.9 g/dL (14.0-18.0); Mean Corpuscular HGB CONC 32.3 g/dL (32.0-36.0); Mean Corpuscular Hemoglobin 31.5 pg (27.0-31.0); Mean Corpuscular Volume 97.7 fl (78.0-98.0); Mean Platelet Volume 6.3 fL (7.4-10.4); Platelet Count 325 10x3/uL (130-400); RBC Distribution Width 13.8 % (11.5-14.5); White Blood Cell (WBC) Count 6.4 10x3/uL (4.8-10.8)
[2022-04-09 06:05] LABS: Anion Gap 8 mmol/L (10-20); BUN (Urea Nitrogen) 11 mg/dL (8.4-25.7); Calc. Creatinine Clearance 104 mL/min (70-130); Calcium 7.5 mg/dL (7.8-10.44); Carbon Dioxide 25 mmol/L (23-31); Chloride 107 mmol/L (98-107); Estimated GFR 97; Glucose 87 mg/dL (80-115); Potassium 3.3 mmol/L (3.5-5.1); Sodium 137 mmol/L (136-145)
[2022-04-09] MEDS ORDERED: Fludrocortisone Acetate 0.1 MG TAB PO SCH (09:00)
[2022-04-09] MEDS: Docusate 100 MG CAP PO SCH ×2 (09:14→21:58)
[2022-04-09] MEDS: Oxybutynin ER 5 MG TAB PO SCH (09:17)
[2022-04-09] MEDS ORDERED: Electrolyte Replacement Protocol 1 EACH FS SCH (14:15)
[2022-04-09] MEDS ORDERED: Potassium Chloride 20 MEQ TAB PO SCH (14:15)
[2022-04-09] MEDS ORDERED: Iron, Sodium Ferric Gluconate 125 MG in Sodium Chloride 0.9% 100 ML IVPB SCH (14:30)
[2022-04-09] MEDS ORDERED: Aspirin 81 mg Enteric Coated Tablet PO SCH (14:30)
[2022-04-09] MEDS: Lorazepam 0.5 MG TAB PO PRN (21:57)
[2022-04-09] MEDS: Tamsulosin HCl 0.4 MG CAP PO SCH (21:58)
[2022-04-09] MEDS: Atorvastatin Calcium 40 MG TAB PO SCH (21:58)
[2022-04-10] MEDS: Hyoscyamine Sulfate SL 0.125 mg Tablet SL SCH ×4 (00:43→17:55)
[2022-04-10] MEDS: Meropenem 1 GM in Sodium Chloride 0.9% 100 ML IVPB SCH ×2 (01:09→11:45)
[2022-04-10 05:20] LABS: #Eosinphils 0.1 thou/uL (0.0-0.7); #Lymphocytes 1.1 thou/uL (1.20-3.40); #Monocytes 0.4 thou/uL (0.11-0.59); #Neutrophils 3.7 thou/uL (1.40-6.50); %Basophils 0.9 % (0.0-1.0); %Eosinophils 1.9 % (0.0-10.0); %Lymphocytes 20.6 % (21.0-51.0); %Monocytes 7.5 % (0.0-10.0); %Neutrophils 69.2 % (42.0-75.0); Mean Corpuscular HGB CONC 32.9 g/dL (32.0-36.0); Mean Corpuscular Hemoglobin 32.1 pg (27.0-31.0); Mean Corpuscular Volume 97.5 fl (78.0-98.0); Mean Platelet Volume 6.3 fL (7.4-10.4); Platelet Count 377 10x3/uL (130-400); RBC Distribution Width 13.8 % (11.5-14.5); Red Blood Cell (RBC) Count 2.48 mill/uL (4.70-6.10); White Blood Cell (WBC) Count 5.4 10x3/uL (4.8-10.8)
[2022-04-10] MEDS ORDERED: Loperamide HCl 2 MG CAP PO SCH (05:30)
[2022-04-10 05:37] LABS: Phosphorus 2.1 mg/dL (2.3-4.7)
[2022-04-10 05:39] LABS: Anion Gap 8 mmol/L (10-20); BUN (Urea Nitrogen) 10 mg/dL (8.4-25.7); Calc. Creatinine Clearance 106 mL/min (70-130); Calcium 7.6 mg/dL (7.8-10.44); Carbon Dioxide 23 mmol/L (23-31); Chloride 110 mmol/L (98-107); Estimated GFR 97; Glucose 86 mg/dL (80-115); Magnesium 1.9 mg/dL (1.6-2.6); Potassium 3.9 mmol/L (3.5-5.1); Sodium 137 mmol/L (136-145)
[2022-04-10] MEDS ORDERED: Magnesium 2 GM/50 ML(in water) 2 GM in Premix Bag 1 BAG IVPB SCH (08:00)
[2022-04-10] MEDS: Ferrous Gluconate 324 MG TAB PO SCH (09:38)
[2022-04-10] MEDS: Ascorbic Acid 500 mg Chewable Tablet PO SCH (09:39)
[2022-04-10] MEDS: Oxybutynin ER 5 MG TAB PO SCH (09:39)
[2022-04-10] MEDS: Aspirin 81 mg Enteric Coated Tablet PO SCH (09:39)
[2022-04-10] MEDS ORDERED: Potassium Phosphate 15 MMOL in Sodium Chloride 0.9% 100 ML IVPB SCH (17:15)
[2022-04-10] MEDS: Tamsulosin HCl 0.4 MG CAP PO SCH (19:45)
[2022-04-10] MEDS: Lorazepam 0.5 MG TAB PO PRN (19:45)
[2022-04-10] MEDS: Atorvastatin Calcium 40 MG TAB PO SCH (19:45)
[2022-04-10] MEDS: Cefdinir 300 MG CAP PO SCH (19:45)
[2022-04-10] MEDS: HYDROcodone/Acetaminophen 5/325 mg Tablet PO PRN (19:45)
[2022-04-11] MEDS: Hyoscyamine Sulfate SL 0.125 mg Tablet SL SCH ×3 (00:37→12:03)
[2022-04-11] MEDS: Ascorbic Acid 500 mg Chewable Tablet PO SCH (08:40)
[2022-04-11] MEDS: Cefdinir 300 MG CAP PO SCH (08:40)
[2022-04-11] MEDS: Ferrous Gluconate 324 MG TAB PO SCH (08:40)
[2022-04-11] MEDS: Oxybutynin ER 5 MG TAB PO SCH (08:40)
[2022-04-11] MEDS: Aspirin 81 mg Enteric Coated Tablet PO SCH (08:40)
[2022-04-11 08:44] VITALS: BP 130/78; TEMP 97.7
== END 2022-04-11 14:30 | disposition home or self-care (01) | DRG 871 ==
LOC: ERS 10:56 → ERHOLD 12:22 → CCU 16:48 → MSONC 03-31 12:24
PROVIDERS: ADMIT Internal Medicine; ATTEND Internal Medicine
PROC: 30233N1 Transfusion of Nonautologous Red Blood Cells into Peripheral Vein, Percutaneous Approach (ICD-10-PCS; principal; 2022-03-29)
PROC: 3E033XZ Introduction of Vasopressor into Peripheral Vein, Percutaneous Approach (ICD-10-PCS; 2022-03-29)
DX: A41.9 Sepsis, unspecified organism (principal); G93.41 Metabolic encephalopathy; R65.21 Severe sepsis with septic shock; N17.9 Acute kidney failure, unspecified; E87.1 Hypo-osmolality and hyponatremia; L03.314 Cellulitis of groin; D84.81 Immunodeficiency due to conditions classified elsewhere; D62 Acute posthemorrhagic anemia; Z66 Do not resuscitate; Z20.822 Contact with and (suspected) exposure to COVID-19; M06.9 Rheumatoid arthritis, unspecified; N40.1 Benign prostatic hyperplasia with lower urinary tract symptoms; R33.8 Other retention of urine; C50.921 Malignant neoplasm of unspecified site of right male breast; H54.40 Blindness, one eye, unspecified eye; D64.81 Anemia due to antineoplastic chemotherapy; T45.1X5A Adverse effect of antineoplastic and immunosuppressive drugs, initial encounter; E87.5 Hyperkalemia; I12.9 Hypertensive chronic kidney disease with stage 1 through stage 4 chronic kidney disease, or unspecified chronic kidney disease; N18.30 Chronic kidney disease, stage 3 unspecified; E78.5 Hyperlipidemia, unspecified; E88.09 Other disorders of plasma-protein metabolism, not elsewhere classified; R31.9 Hematuria, unspecified; E83.39 Other disorders of phosphorus metabolism; Z88.8 Allergy status to other drugs, medicaments and biological substances; Z79.82 Long term (current) use of aspirin; Z79.899 Other long term (current) drug therapy; Z87.891 Personal history of nicotine dependence
CPT/HCPCS: 36415; 36416; 36430; 51701; 70450; 71045; 76770; 80048; 80053; 80069; 80202; 81001; 81003; 82274; 82533; 83605; 83690; 83735; 83880; 84100; 84145; 84436; 84443; 84479; 84484; 84550; 85025; 85610; 85730; 86850; 86900; 86901; 87040; 87086; 87811; 93005; 93306; 94760; 96365; 96366; 96375; 97139; C9113; J0692; J1642; J1650; J1720; J2185; J2405; J3370; J3370-JW; J3475; J3490; J7030; J7050; J7070; P9016; U0003; U0005

== ENCOUNTER 2022-08-14 10:15 | Outpatient (CLI) | payer MEDICARE | END 2022-08-14 10:16 | disposition home or self-care (01) | LOC: PET 10:15 | PROVIDERS: ATTEND Internal Medicine Hematology & Oncology | DX: Z08 Encounter for follow-up examination after completed treatment for malignant neoplasm (principal); C50.121 Malignant neoplasm of central portion of right male breast; R59.1 Generalized enlarged lymph nodes | CPT/HCPCS: 78815; A9552 ==

== ENCOUNTER 2023-02-17 13:06 | Outpatient (CLI) | payer MEDICARE, OTHER ==
[2023-02-17 14:35] LABS: #Eosinphils 0.1 10x3/uL (0.0-0.5); #Monocytes 0.3 10x3/uL (0.0-1.1); #Neutrophils 1.9 10x3/uL (1.5-8.4); %Basophils 0.8 % (0.0-2.0); %Eosinophils 1.6 % (0.0-6.0); %Lymphocytes 37.6 % (18.0-47.0); %Monocytes 8.9 % (0.0-10.0); %Neutrophils 50.6 % (40.0-75.0); Hematocrit 34.5 % (38.8-50.0); Hemoglobin 11.4 g/dL (13.5-17.5); Mean Corpuscular Hemoglobin 31.2 pg (27.0-33.0); Mean Corpuscular Volume 94.5 fl (81.2-95.1); Mean Platelet Volume 10.3 fl (7.4-10.4); Platelet Count 259 10x3/uL (150-450); RBC Distribution Width 13.9 % (11.5-14.5); Red Blood Cell (RBC) Count 3.65 10x6/uL (4.32-5.72); White Blood Cell (WBC) Count 3.7 10x3/uL (3.5-10.5)
[2023-02-17 14:50] LABS: Anion Gap 13 mmol/L (10-20); BUN (Urea Nitrogen) 10 mg/dL (8.4-25.7); Calc. Creatinine Clearance 0 mL/min (70-130); Calcium 9.8 mg/dL (7.8-10.44); Carbon Dioxide 24 mmol/L (23-31); Chloride 105 mmol/L (98-107); Estimated GFR 79; Glucose 94 mg/dL (80-115); Potassium 4.4 mmol/L (3.5-5.1); Sodium 138 mmol/L (136-145)
== END 2023-02-17 13:07 | disposition home or self-care (01) ==
LOC: LABBT 13:06
PROVIDERS: ATTEND Specialist
DX: Z01.818 Encounter for other preprocedural examination (principal); C50.921 Malignant neoplasm of unspecified site of right male breast
CPT/HCPCS: 71046; 80048; 85025; 93005; 93010

== ENCOUNTER 2023-03-11 07:35 | Day surgery (SDC) | payer MEDICARE ==
[2023-02-17 14:11] VITALS: BMI 22.8
[2023-03-11] MEDS ORDERED: Acetaminophen 500 MG TAB ONE (09:26)
[2023-03-11] MEDS ORDERED: Ketorolac Tromethamine 30 MG/ML VIAL ONE (09:26)
[2023-03-11] MEDS ORDERED: Lidocaine 2% PF 100 mg/5 ml Syringe ONE (15:23)
[2023-03-11] MEDS ORDERED: Isosulfan Blue 50 MG/5 ML VIAL ONE (15:23)
[2023-03-11] MEDS ORDERED: EPINEPHrine 1 MG/ML VIAL ONE (15:24)
[2023-03-11] MEDS ORDERED: Dexamethasone 4 mg/ml Vial ONE (15:24)
[2023-03-11] MEDS ORDERED: Bupivacaine PF 0.5% 30 ML VIAL ONE (15:24)
[2023-03-11] MEDS ORDERED: Ondansetron PF 4 MG/2 ML Vial ONE ×2 (15:24→15:53)
[2023-03-11] MEDS ORDERED: Lidocaine 1% PF 5 ML VIAL ONE ×2 (15:24→15:53)
[2023-03-11] MEDS ORDERED: PROPOFOL 20 ML ONE (15:24)
[2023-03-11] MEDS ORDERED: Lidocaine 2% PF 5 ML VIAL ONE (15:26)
[2023-03-11] MEDS ORDERED: CEFAZOLIN 2 GM VIAL ONE (15:37)
[2023-03-11] MEDS ORDERED: Sodium Chloride 0.9% 100 ML ONE (15:37)
[2023-03-11] MEDS ORDERED: Midazolam HCl 2 mg/2 ml Vial ONE (15:52)
[2023-03-11] MEDS ORDERED: Dexamethasone 20 MG/5 ML VIAL ONE (15:53)
[2023-03-11] MEDS ORDERED: PROPOFOL 200 MG/20 ML VIAL ONE (15:53)
[2023-03-11] MEDS ORDERED: fentaNYL 50 mcg/mL 1 mL Vial ONE ×3 (16:07→18:26)
[2023-03-11] MEDS ORDERED: HYDROcodone/Acetaminophen 5/325 mg Tablet ONE (18:54)
== END 2023-03-11 19:26 | disposition home or self-care (01) ==
LOC: SDC 07:35
PROVIDERS: ATTEND Specialist
PROC: 0HBT0ZZ Excision of Right Breast, Open Approach (ICD-10-PCS; principal; 2023-03-11)
PROC: 07B50ZZ Excision of Right Axillary Lymphatic, Open Approach (ICD-10-PCS; 2023-03-11)
DX: N60.31 Fibrosclerosis of right breast (principal); I10 Essential (primary) hypertension; M06.9 Rheumatoid arthritis, unspecified; Z86.73 Personal history of transient ischemic attack (TIA), and cerebral infarction without residual deficits; Z79.82 Long term (current) use of aspirin; Z87.891 Personal history of nicotine dependence; Z79.899 Other long term (current) drug therapy
CPT/HCPCS: 19301; 38525; 38900; 78195; A9541; C1713; J0171; J3010; Q9968; 88307; 88342; J1100; J1885; J2001; J2250; J2405; J2704; J3490; S0020

== ENCOUNTER 2024-02-27 07:03 | Day surgery (SDC) | payer MEDICARE ==
[2024-02-26 14:41] VITALS: BMI 34.4
[2024-02-27] MEDS ORDERED: Lidocaine 1% PF 5 ML VIAL ONE (09:01)
[2024-02-27] MEDS ORDERED: Ondansetron PF 4 MG/2 ML Vial ONE (09:01)
[2024-02-27] MEDS ORDERED: fentaNYL PF 100 MCG/2 ML SYRINGE ONE ×2 (09:02→10:29)
[2024-02-27] MEDS ORDERED: PROPOFOL 20 ML ONE (09:02)
[2024-02-27] MEDS ORDERED: CEFAZOLIN 2 GM VIAL ONE (09:04)
[2024-02-27] MEDS ORDERED: Bupivacaine PF 0.5% 30 ML VIAL ONE (09:04)
[2024-02-27] MEDS ORDERED: Dexamethasone 20 MG/5 ML VIAL ONE (09:30)
[2024-02-27] MEDS ORDERED: fentaNYL 50 mcg/mL 1 mL Vial ONE ×3 (10:05→12:56)
== END 2024-02-27 14:09 | disposition home or self-care (01) ==
LOC: SDC 07:03
PROVIDERS: ATTEND Orthopaedic Surgery
PROC: 0QP704Z Removal of Internal Fixation Device from Left Upper Femur, Open Approach (ICD-10-PCS; principal; 2024-02-27)
DX: T85.848A Pain due to other internal prosthetic devices, implants and grafts, initial encounter (principal); I10 Essential (primary) hypertension; M06.9 Rheumatoid arthritis, unspecified; Z87.891 Personal history of nicotine dependence; Z79.899 Other long term (current) drug therapy; Z98.890 Other specified postprocedural states; S72.22XD Displaced subtrochanteric fracture of left femur, subsequent encounter for closed fracture with routine healing; X58.XXXD Exposure to other specified factors, subsequent encounter; Y83.1 Surgical operation with implant of artificial internal device as the cause of abnormal reaction of the patient, or of later complication, without mention of misadventure at the time of the procedure
CPT/HCPCS: 20680; 73560; J0665; J1642; J2405; J2704; J3010